=== PATIENT | female | born 1960 | race Caucasian/White ===

== ENCOUNTER 2023-06-17 12:01 | Outpatient (CLI) | payer OTHER, SELFPAY ==
--- OUTSIDE RECORDS SUMMARY | 2023-06-18 07:13 | XMS_ITS | Clinical Summary ---
Author Name Unknown Organization [facility] Address [place], [place] [address] Care Team Providers Care Food Scientist Name Role Phone Susi Guillermo Nikki Primary Care Provider León Mooney MD Unavailable Allergies Active Allergy Reactions Criticality Noted Date Comments Acarbose Stomach Upset,GI Upset 03/09/2016 Arvind Inhibitors Cough Low 12/07/2013 Amlodipine Edema 11/21/2016 Bupivacaine Hypotension High 12/11/2013 Other reaction(s): Low BP Exenatide Microspheres GI Upset Medium 10/10/2016 site reaction. Cephalosporins Rash High 12/11/2013 Rosuvastatin Myalgia 07/02/2019 Erythromycin Rash High 12/11/2013 Hydromorphone Itching High 12/12/2020 Cephalexin Rash 05/16/2015 Melatonin Behavioral Disturbances 05/14/2022 aggressive thoughts 7mg dosing Metformin Diarrhea 07/12/2014 SA and LA Morphine Rash,Itching High 12/11/2013 Nitrate Analogues Hives High 12/12/2020 Nitrofurantoin Rash,Hives High 12/11/2013 Penicillins Anaphylaxis High 12/11/2013 Semaglutide GI Upset 05/14/2022 severe gi upset with reflux. does ok with trulicity. Qzbavxy-Cud-Evp Reductase Inhibitors Muscle Weakness 07/12/2014 Sulfa (Sulfonamide Antibiotics) Hives High 12/11/2013 Medications Medication Sig Dispensed Refills Start Date End Date Status cholecalciferol (VITAMIN D-3) 2,000 unit capsule Take 2,000 Units by mouth once daily. 0 Active Biotin 2,500 mcg tablet Pt takes one 5,000 mcg tablet once daily 0 Active coenzyme q10 (CO Q-10) 100 mg capIndications:Cont rolled type 2 diabetes mellitus without complication, with long-term current use of insulin (HC) Take 2 capsules by mouth once daily. 0 05/04/2020 Active docusate (COLACE) 100 mg capsule Take 1 Capsule (100 mg) by mouth 2 times daily if needed for Constipation. 0 04/07/2021 Active estradioL (ESTRACE) 0.01% (0.1 mg/g) vaginal cream Insert 1 g into the vagina. Three time per week 0 03/10/2021 Active lancets-blood glucose strips (Pogo Automatic Test Cartridge) 30 gauge cmpkIndications:Typ e 2 diabetes mellitus without complication, without long-term current use of insulin (HC) As directed. 5 Each 6 09/06/2021 Active Insulin [place], Disposable, (bd insulin pen needle uf mini) 31 gauge x 3/16Indications:Co ntrolled type 2 diabetes mellitus without complication, with long-term current use of insulin (HC) USE DIRECTED (REMOVE THE 2 COVERS ON THE INSULIN PEN NEEDLE BEFORE ADMINISTERING INSULIN DOSE) 100 Each 3 11/05/2022 Active esomeprazole (NEXIUM) 40 mg capsuleIndications: Chronic GERD Take 1 Capsule (40 mg) by mouth once daily before a meal. 90 Capsule 3 12/17/2022 Active pravastatin (PRAVACHOL) 20 mg tabletIndications:M ixed hyperlipidemia,Type 2 diabetes mellitus without complication, with long-term current use of insulin (HC) Take 0.5 Tablets (10 mg) by mouth at bedtime. 90 Tablet 3 12/17/2022 Active venlafaxine (EFFEXOR) 50 mg tabletIndications:D epression, unspecified depression type TAKE ONE-HALF (1/2) TABLET DAILY 45 Tablet 0 04/19/2023 Active empagliflozin (Jardiance) 25 mg tabletIndications:C ontrolled type 2 diabetes mellitus without complication, with long-term current use of insulin (HC) Take 1 Tablet (25 mg) by mouth once daily. 90 Tablet 2 04/24/2023 Active dulaglutide (TRULICITY) 1.5 mg/0.5 mL subcutaneous penIndications:Unco ntrolled type 2 diabetes mellitus with hyperglycemia (HC) Inject 1.5 mg subcutaneous once weekly. 6 mL 1 04/24/2023 Active dilTIAZem CD (CARDIZEM CD) 120 mg extended release 24 hr capsuleIndications: Hypertension Take 1 Capsule (120 mg) by mouth once daily. 90 Capsule 3 04/24/2023 Active levothyroxine (SYNTHROID) 75 mcg tabletIndications:A cquired hypothyroidism Take 1 Tablet (75 mcg) by mouth once daily. 90 Tablet 3 04/24/2023 Active valsartan (DIOVAN) 160 mg tabletIndications:M ixed hyperlipidemia Take 2 Tablets (320 mg) by mouth once daily. 180 Tablet 4 04/24/2023 Active insulin degludec, U-100, (Tresiba FlexTouch U-100) 100 unit/mL (3 mL) penIndications:Cont rolled type 2 diabetes mellitus without complication, with long-term current use of insulin (HC) Use 20 units SubQ in am and 40 units SubQ in evening. 12 mL 2 04/26/2023 Active venlafaxine (EFFEXOR XR) 75 mg cp24 Extended-Release capsuleIndications: Depression, unspecified depression type Take 1 Capsule (75 mg) by mouth once daily with a meal. 90 Capsule 0 05/03/2023 Active nirmatrelvir-ritona vir 300-100mg, EUA, (PAXLOVID, EUA,) tabletIndications:C OVID-19 virus infection Take 2 nirmatrelvir 150 mg pink-oval tablets and 1 ritonavir 100 mg white-oval tablet together twice daily for 5 days. Date of Symptom Onset: 05/13/23; no result in last 6 months 30 Tablet 0 05/15/2023 3 Active Problems Problem Noted Date Diagnosed Date Non-proliferative diabetic retinopathy, both eye s 05/27/2021 Uncontrolled type 2 diabetes mellitus with hyper glycemia 04/07/2021 Last Assessment & Plan: chart update only. Susi Guillermo D.O. 06/15/2022 8:52 AM Female genital prolapse 01/10/2021 Controlled type 2 diabetes m ellitus without complication, with long-term current use of insulin 07/17/2017 Edema of both ankles 11/21/2016 Mixed hyperlipidemia 05/14/2015 Type 2 diabetes mellitus without complication H/O ventral hernia repair 12/11/2013 Fever 12/11/2013 Tachycardia 12/11/2013 Hypertension 12/11/2013 Hypothyroidism 12/11/2013 Depression 12/11/2013 Obese 12/11/2013 Hyponatremia 12/11/2013 Overview: post op/ chronic. Resolved Problems Problem Noted Date Diagnosed Date Resolved Date Urinary retention 12/11/2013 07/12/2014 Overview: post op Pneumonia 12/11/2013 07/12/2014 Encounters Date Type Department Care Team Description 06/15/2023 Refill [facility] [address] [place] [address] Susi Guillermo DO Refill Request (Trulicity) 06/13/2023 Medical Messaging [facility] [place] [address] Susi Guillermo DO Pt/ot 05/29/2023 7:30 AM E LEARNING SPECIALIST Ancillary Procedure [facility] [address] [place] [address] 05/29/2023 Travel 05/26/2023 Telephone [facility] [place] [place] [address] Susi Guillermo DO Testing (emg testing left hand ) 05/15/2023 3:10 PM E LEARNING SPECIALIST Phone Office Visit [place] [address] [place] [address] Sylvester Arrieta MD Concerns (COVID-19 05/13 /sx started Saturday /101-102 fever ); Throat Problem; Dizziness 05/09/2023 Orders Only [facility] Scanner 1 scan: (1-Ord) CARIE 04/26/2023 Refill [facility] [address] [place] [address] Susi Guillermo DO Refill Request (insulin) 04/24/2023 8:20 AM E LEARNING SPECIALIST Orders Only [address] [address] Lab, [place] [facility] 04/24/2023 7:45 AM E LEARNING SPECIALIST Office Visit [facility] [address] [place] [address] Susi Guillermo, Diabetes 04/24/2023 Travel 04/19/2023 Refill [facility] [address] [place] [address] Susi Guillermo DO Refill Request (Venlafaxine) 04/14/2023 Refill [facility] [address] [place] [address] Susi Guillermo DO Refill Request (Jardiance, Levothyroxine) from Last 3 Months Immunizations Name Administration Dates Next Due COVID-19 vaccine (Moderna 100mcg/0.5mL) PF, MDV 07/18/2020,06/20/2020 COVID-19 vaccine (Piethis.comBio NTech 30mcg/0.3mL) 12YO+ BIVALENT PF, MDV 03/05/2022 Influenza, IIV3 (Age 6-35 mos) 03/17/2012,2010 Influenza, IIV3 (Age >=3 years) 02/17/2013 Influenza, IIV4 04/24/2023, 2,04/07/2021,2019,03/01/2019,03/12/2018,02/25/2017,1 ,04/22/2015,03/15/2014 Pneumococcal Conj 20-valent (Prevnar 20) 05/14/2022 Pneumococcal Poly,23-Valent (Pneumovax) 06/09/2012 Td (Age >=7 Years) 11/08/2001 Tdap 01/08/2014 Zoster (Shingrix-RZV, recombinant) 05/04/2020, Family History Medical History Relation Name Comments Hypertension Brother 1 Diabetes Brother 2 Heart Disease Brother 3 Hyperlipidemia Brother 4 Hypertension Father Hypertension Maternal Grandfather Hypertension Maternal Grandmother Hypertension Mother Thyroid Disease Mother polyps Diabetes Paternal Grandfather Heart Disease Paternal Grandfather Hypertension Paternal Grandfather Stroke Paternal Grandfather Cancer-breast Paternal Grandmother Diabetes Paternal Grandmother Hypertension Paternal Grandmother Stroke Paternal Grandmother Thyroid Disease Paternal Grandmother Hypertension Sister 1 Hypertension Sister 2 Diabetes Sister 3 Relation Name Status Comments Brother 1 Brother 2 Brother 3 Brother 4 Father Maternal Grandfather Maternal Grandmother Mother Paternal Grandfather Paternal Grandmother Sister 1 Sister 2 Sister 3 Social History Tobacco Use Types Packs/Day Years Used Date Smoking Tobacco: Never Smokeless Tobacco: Never Tobacco Cessation:Counseling Given: Yes Alcohol Use Standard Drinks/Week Comments Yes 0 (1 standard drink = 0.6 oz pur e alcohol) few drinks per month PHQ-2 Answer Date Recorded PHQ-2 TOTAL SCORE 6 05/03/2023 Social Connections Answer Date Recorded Frequency of Communication with Friends and Fami ly Not on file 06/17/2023 Financial Resource Strain Answer Date R ecorded Difficulty of Paying Living Expenses 3 03/05/2022 Difficulty of Paying Living Expenses Not on file 03/05/2022 Food Insecurity Answer Date Recorded Worried About Running Out of Food in the Last Ye ar 1 03/05/2022 Transportation Needs Answer Date Record ed Lack of Transportation (Medical) 1 03/05/2022 Housing Stability Answer Date Recorded Unable to Pay for Housing in the Last Year 1 03/05/2022 Sex and Gender Information Value Date Recorded Sex Assigned at Not on file Gender Identity Not on file Sexual Orientation Not on file Obstetrics History Last Filed Vital Signs Vital Sign Reading Time Taken Comments Blood Pressure 130/75 04/24/2023 7:44 AM E LEARNING SPECIALIST Pulse 83 04/24/2023 7:44 AM E LEARNING SPECIALIST Temperature 36.7 ??C (98.1 ??F) 06/14/2020 10:[address] Respiratory Rate 18 12/13/2013 8:30 AM CDT Oxygen Saturation 97% 04/24/2023 7:44 AM E LEARNING SPECIALIST Inhaled Oxygen Concentration - - Weight 87.5 kg (193 lb) 04/24/2023 7:44 AM E LEARNING SPECIALIST Height 158.5 cm (5' 2.4) 03/05/2023 2:24 PM CDT Body Mass Index 34.85 03/05/2023 2:24 PM CDT Plan of Treatment Upcoming Encounters Date Type Department Care Team (Late st Contact Info) Description 10/23/2023 7:45 AM CDT Office Visit [facility] [address] [place] [address] Susi Guillermo DO [address] [place] [address] Health Maintenance Due Date Last Done Comments COVID-19 vaccine series (2022- season) 2023 03/05/2022, 07/18/2020, 06/20/2020 Mammogram for age 45-75 12/18/2023 12/18/19 23, 03/31/2021, 06/02/2018, Additional history exists Tetanus booster 01/09/2024 01/08/2014, 11/08/2001 BMI (ht and wt on same day) for age 18+ 03/05/2024 03/05/2023, 05/14/2022, 04/07/2021, Additional history exists Depression screening for age 12+ 05/03/2024 05/03/2023, 05/17/2022, 05/14/2022, Additional history exists Fecal testing sDNA-FIT (Covert guard) for age 45-75 06/04/2025 06/04/2022 Lipids for age 45-75 04/24/2028 04/24/2023, 12/17/2022, 05/14/2022, Additional history exists Tdap Completed 01/08/2014 Zoster (shingles) series for age 50+ Completed 05/04/2020, 07/27/2019 Hepatitis C screening for ag e 18-79 Completed 07/31/2021 HIV for age 15-65 Completed 05/14/2022 Pneumococcal series for age 6-64 Completed 05/14/20, 06/09/2012 Influenza for age 50-64 Completed 04/24/20 23, 03/05/2022, 04/07/2021, Additional history exists Goals Goal Patient Goal Type Associated Problems Recent Progress Patient-Stated? Author BLOOD PRESSURE - MAINTAINS BP less than 140/90 Blood Pressure No Susi Guillermo DO BLOOD PRESSURE-MAINTA INS BP LESS THAN 130/80 Blood Pressure No Susi Guillermo DO DIABETES-HgbA1C GOAL LESS THAN 7 Result Component No Detert, Susi Nikki, DO Procedures Procedure Name Priority Date/Time Associated Diagnosis Comments XR SPINE CERVICAL 4 OR 5 VIEWS Routine 05/29/2023 7:32 AM E LEARNING SPECIALIST Numbness and tingling in left hand SCAN-ELECTROMYOGRAM EMG 05/09/2023 12:00 AM E LEARNING SPECIALIST HEMOGLOBIN A1C Routine 04/24/2023 7:41 AM E LEARNING SPECIALIST Controlled type 2 diabetes mellitus without complication, with long-term current use of insulin (HC) TSH Add On 04/24/2023 7:40 AM E LEARNING SPECIALIST Acquired hypothyroidism LIPID PANEL Routine 04/24/2023 7:40 AM E LEARNING SPECIALIST Mixed hyperlipidemia from Last 3 Months Results * XR SPINE CERVICAL 4 OR 5 VIEWS (05/29/2023 7:32 AM E LEARNING SPECIALIST) Anatomical Region Laterality Modality Spine, CERVICAL SPINE Computed R adiography 05/29/2023 3:50 PM E LEARNING SPECIALIST Impressions 05/29/2023 3:50 PM E LEARNING SPECIALIST Degenerative disc disease C5-6 and C6-7 with mild bilateral bony foraminal stenosis at C5-6. No instability with flexion or extension. Dictated by Gagan Lr MD @ May ??3 2023 ??3:50PM (Electronically Signed) ?? Narrative 05/29/2023 3:50 PM E LEARNING SPECIALIST For Patients: ??As a result of the Cures Act, medical imaging exams and procedure reports are released immediately into your electronic medical record. ??You may view this report before your referring provider. ??If you have questions, please contact your health care provider. INDICATION: Numbness and tingling TECHNIQUE: Cervical spine 6 view, including bilateral obliques and flexion/extension. COMPARISON: None FINDINGS: Bony foraminal stenosis present bilaterally at C5-6. No fracture. Physiologic motion of C3 on C4 and C4 on C5. Uncovertebral joint hypertrophy at C5-6 and C6-7 with anterior spurring. Facet joints maintained. Lung apices clear. Procedure Note Gagan Lr MD - 05/29/2023 For Patients: As a result of the Cures Act, medical imagingexams and procedure reports are released immediately into your electronicmedical record. You may view this report before your referring provider.If you have questions, please contact your health care provider. INDICATION: Numbness and tingling TECHNIQUE: Cervical spine 6 view, including bilateral obliques andflexion/extension. COMPARISON: None FINDINGS: Bony foraminal stenosis present bilaterally at C5-6. No fracture.Physiologic motion of C3 on C4 and C4 on C5. Uncovertebral jointhypertrophy at C5-6 and C6-7 with anterior spurring. Facet jointsmaintained. Lung apices clear. IMPRESSION: Degenerative disc disease C5-6 and C6-7 with mild bilateral bony foraminalstenosis at C5-6. No instability with flexion or extension. Dictated by Gagan Lr MD @ May 29 2023 3:50PM (Electronically Signed) Susi Guillermo DO GENERAL IMAGING * SCAN-ELECTROMYOGRAM EMG (05/09/2023 12:00 AM E LEARNING SPECIALIST) Scanner OTHER * (ABNORMAL) HEMOGLOBIN A1C MONITORING (POCT) (04/24/2023 7:41 AM E LEARNING SPECIALIST) HEMOGLOBIN A1C MONITORING (POCT) 7.1(H) <=6.4 % 04/24/2023 7:54 AM E LEARNING SPECIALIST [facility] Blood BLOOD SPECIMEN / Unknown Venipuncture / Unknown 04/24/2023 7:41 AM E LEARNING SPECIALIST 04/24/2023 7:41 AM E LEARNING SPECIALIST Narrative [facility] - 04/24/2023 7:54 AM E LEARNING SPECIALIST ? (<=6.9%) ? Indicates good control ? (7.0% to 7.9%) ? Indicates fair control ? (>=8.0%) ? Indicates poor control ?? NOTE: ??These thresholds are guidelines and ?individual targets may vary. Falsely low levels may be seen with: Recent Transfusion, Recent Significant Blood Loss, Hemolytic Diseases, or Falsely elevated levels may be seen with: Untreated Anemias, Splenectomy ? Susi Guillermo DO CHEMISTRY [facility] [address] [place] [address], * TSH (04/24/2023 7:40 AM E LEARNING SPECIALIST) Pathologist [facility] TSH 1.62 0.27 - 4.20 uIU/mL 04/24/2023 5:54 PM E LEARNING SPECIALIST [facility] Blood BLOOD SPECIMEN / Unknown Venipuncture / Unknown 04/24/2023 7:40 AM E LEARNING SPECIALIST 04/24/2023 7:49 AM E LEARNING SPECIALIST Narrative [facility] - 04/24/2023 5:54 PM E LEARNING SPECIALIST In Adults, TSH values between 5.00 and 10.00 uIU/ml do not necessarily indicate the presence of Hypothyroidism. Correlation with clinical findings such as presence of goiter and/or Thyroperoxidase (TPO) Antibody may be helpful. For more information please refer to ALEJANDRO 2004; 291: 228-238. Susi Guillermo DO CHEMISTRY [facility] [address] [place] [address], * (ABNORMAL) LIPID PANEL (04/24/2023 7:40 AM E LEARNING SPECIALIST) CHOLESTEROL,TOTAL 236(H) 100 - 199 mg/dL 04/24/2023 5:20 PM E LEARNING SPECIALIST [facility] Comment: Cholesterol, Total Reference Ranges Desirable <200 mg/dL Borderline 200-239 mg/dL High >=240 mg/dL TRIGLYCERIDES 512(H) <150 mg/dL 04/24/2023 5:20 PM E LEARNING SPECIALIST [facility] HDL CHOLESTEROL 38(L) >40 mg/dL 3 5:20 PM E LEARNING SPECIALIST [facility] NON-HDL CHOLESTEROL 198(H) <145 mg/dl 04/24/2023 5:20 PM E LEARNING SPECIALIST [facility] CHOL/HDL RATIO 6.21(H) <4.50 04/24/2023 5:20 PM E LEARNING SPECIALIST [facility] LDL CHOLESTEROL 5:20 PM E LEARNING SPECIALIST [facility] Comment:Invalid LDL when Tri g >400. VLDL CHOLESTEROL COMMENT 04/24/2023 5:20 PM E LEARNING SPECIALIST [facility] Comment:Unable to calculate VLDL. PROVIDER ORDERED STATUS RANDOM 04/24/2023 5:20 PM E LEARNING SPECIALIST [facility] Blood BLOOD SPECIMEN / Unknown Venipuncture / Unknown 04/24/2023 7:40 AM E LEARNING SPECIALIST 04/24/2023 7:49 AM E LEARNING SPECIALIST Belia Felix MD CHEMISTRY [facility] [address] [place] [address], from Last 3 Months Advance Directives Latest Code Status on File Code Status Date Activated Date Inactivated Comments Full Code 12/11/2013 8:50 PM 12/13/2013 4:44 PM Care Teams Food Scientist Relationship Specialty Start Date End Date Susi Guillermo DO [address] [place] [address] PCP - General Family Practice 06/16/14 León Mooney MD [address] [place] [address] Endocrinology 01/01/22
== END 2023-06-17 12:02 | disposition home or self-care (01) ==
LOC: NFLDREF 06-18 07:11
PROVIDERS: PCP Family Medicine; Referring Provider Family Medicine; Visit Provider Nurse Practitioner
DX: R30.0 Dysuria (principal); N30.00 Acute cystitis without hematuria; N30.01 Acute cystitis with hematuria
CPT/HCPCS: 87086; 87186

== ENCOUNTER 2023-07-29 07:30 | Outpatient (RCR) | payer OTHER, SELFPAY | END 2023-11-26 23:59 | disposition home or self-care (01) | PROVIDERS: PCP Family Medicine; Visit Provider Family Medicine | DX: M50.30 Other cervical disc degeneration, unspecified cervical region (principal); R20.0 Anesthesia of skin; Z51.89 Encounter for other specified aftercare | CPT/HCPCS: 97110; 97140; 97162 ==

== ENCOUNTER 2024-01-22 16:17 | Observation (INO) | payer OTHER, SELFPAY ==
[2024-01-22 16:23] VITALS: BP 172/85; PULSE 98; RESP 18; TEMP 36.6; O2SAT 96; BMI 33.8
--- NOTE | 2024-01-22 17:22 | ED_ITS ---
<Statement entered by Barbara Multani MD - 01/24/24 09:26> inadvertently opened. HPI - Fall General Time Seen by Provider: 17:22 Date Seen: 01/22/24 Chief Complaint: Fall/Minor Trauma Stated Complaint: loss of consciousness Time Seen by Provider: 01/22/24 17:13 Source: patient and RN notes reviewed Mode of arrival: ambulatory Limitations: no limitations History of Present Illness HPI Narrative: This 63-year-old female is coming in accompanied by her with concern of an episode that happened earlier where her legs gave out, she fell, possible loss of consciousness, incoherent speech for about 10 minutes after. She states it was really bizarre, almost like an out of body experience. Her felt her pulse felt fast but regular, her breathing seemed altered for a while and her speech was garbled, maybe up to 10 minutes. She did fall, she knew her legs were giving out. They just felt weak and gave out. She has been experiencing leg weakness for about a week now, feels it with getting up out of a chair, going up steps. She has never had anything to this extent before. She has been on rosuvastatin for about a week as the pharmacy was out of the pravastatin. When she is taken rosuvastatin the past she noted leg weakness, could not tolerate it. She never had anything like this before though. She actually did fall to the ground, it is questionable if she lost consciousness or not. Her notes that her speech was clearly altered and not clear. There is no noted pain anywhere, she has not been having any muscular pain. There is no back pain, no pain going down her legs. Her right hand along the palm at the base of the 3rd 4th and 5th fingers has been numb this past week. She has had that with prior cervical issues for which she did physical therapy. She is not experiencing any neck pain at this time, numbness sensation is not worse at this time. She notes that she had a recent follow up in clinic with Dr. Guillermo and her diabetes was out of control. She has been walking again, doing about 2 miles a day. There is no chest pain, no palpitations, no abdominal symptoms with this. Her worries about a small stroke or TIA, do review with him that that is certainly in the differential. We discussed such entities as cervical myelopathy, other etiologies in the syncope category. She notes that she did have negative cardiac stress testing before but that was in [place], unknown how long ago. She has no known cardiac or heart history. When this happened, patient was able to call out her 's name once. She feels like she remembers the whole episode but could not say anything, could not control her body. She states it feels like it was an out of body episode. Related Data Home Medications ?Medication ?Instructions ?Recorded ?Confirmed diltiazem HCl 120 mg 120 mg PO DAILY 06/17/23 01/22/24 capsule,extended release 24 hr empagliflozin 25 mg tablet 25 mg PO DAILY 06/17/23 01/22/24 (Jardiance) esomeprazole magnesium 40 mg 40 mg PO DAILY 06/17/23 01/22/24 capsule,delayed release insulin degludec 100 unit/mL (3 57 unit subcut Q24H 06/17/23 01/22/24 mL) subcutaneous pen (Tresiba FlexTouch U-100 insulin) levothyroxine 75 mcg tablet 75 mcg PO DAILY 06/17/23 01/22/24 pen needle, diabetic 31 gauge x #1,200 ea 06/17/23 06/17/23 3/16 (BD Ultra-Fine Mini Pen Needle) valsartan 160 mg tablet 320 mg PO DAILY 06/17/23 01/23/24 venlafaxine 75 mg capsule,extended 75 mg PO DAILY 06/17/23 01/22/24 release 24 hr tirzepatide 5 mg/0.5 mL 5 mg subcut .weekly 01/22/24 01/22/24 subcutaneous pen injector (Sharona) biotin 2,500 mcg tablet 5,000 mcg PO DAILY 01/23/24 01/23/24 cholecalciferol (vitamin D3) 50 2,000 unit PO DAILY 01/23/24 01/23/24 mcg (2,000 unit) capsule coenzyme Q10 100 mg capsule 200 mg PO DAILY 01/23/24 01/23/24 estradiol 0.01% (0.1 mg/gram) 1 g vaginal 3XW 01/23/24 01/23/24 vaginal cream Previous Rx's ?Medication ?Instructions ?Recorded aspirin 81 mg capsule 81 mg PO DAILY #30 caps 01/23/24 pravastatin 40 mg tablet 40 mg PO QHS #30 tabs 01/23/24 Allergies Allergy/AdvReac Type Severity Reaction Status Date / Time Penicillins Allergy Severe Anaphylaxis Verified 01/22/24 18:43 Sulfa (Sulfonamide Allergy Intermediate Hives/Rash Verified 01/22/24 18:43 Antibiotics) EDDI Inhibitors Allergy Unknown Verified 01/22/24 18:43 Cephalosporins Allergy Unknown Verified 01/22/24 18:43 erythromycin base Allergy Unknown Verified 01/22/24 18:43 [From Erythrocin] metformin Allergy Unknown Verified 01/22/24 18:43 morphine Allergy Unknown Verified 01/22/24 18:43 nitrofurantoin Allergy Unknown Verified 01/22/24 18:43 [From Macrobid] Uubjuan-ERU-EzC Reductase Allergy Unknown Verified 01/22/24 18:43 Inhibitor Review of Systems Status of ROS: Reports: 6 or more systems reviewed and unremarkable except as noted in History and below [facility] Medical History (Updated 01/23/24 @ 15:27 by Noelle Elmore MD) Multiple drug allergies ?Z88.9 - Allergy status to unspecified drugs, medicaments and biological substances (ICD-10) Obesity ?E66.9 - Obesity, unspecified (ICD-10) GERD (gastroesophageal reflux disease) ?K21.9 - Gastro-esophageal reflux disease without esophagitis (ICD-10) Hypothyroidism ?E03.9 - Hypothyroidism, unspecified (ICD-10) Hyperlipidemia, mixed ?E78.2 - Mixed hyperlipidemia (ICD-10) Type 2 diabetes mellitus ?E11.9 - Type 2 diabetes mellitus without complications (ICD-10) HTN (hypertension) ?I10 - Essential (primary) hypertension (ICD-10) Surgical History (Updated 01/22/24 @ 21:33 by Barbara Multani MD) H/O breast biopsy ?Z98.890 - Other specified postprocedural states (ICD-10) H/O hernia repair ?Z98.890 - Other specified postprocedural states (ICD-10) ?Z87.19 - Personal history of other diseases of the digestive system (ICD-10) History of hysterectomy ?Z90.710 - Acquired absence of both cervix and uterus (ICD-10) History of laparoscopic cholecystectomy ?Z90.49 - Acquired absence of other specified parts of digestive tract (ICD- 10) Status post appendectomy ?Z90.49 - Acquired absence of other specified parts of digestive tract (ICD- 10) Social History What is your current living situation?: I presently have a place to live Problems where you live: no known problems Problems where you live details: n/a In the past 12 months, utilities in danger of being shut off: no In past 12 months, lack of transportation kept you from medical appts, meetings, work, or getting things needed for daily living: no In the past 12 mos, have been you worried that your food would run out before you had money to buy more?: never true In the past 12 mos, the food you bought just didn't last and you didn't have money to buy more?: never true Highest level of school completed/degree received: Master's degree Smoking Status: Never smoker Do you use any of these nicotine containing products: None Second hand tobacco smoke exposure: No How often do you have a drink containing alcohol: monthly or less How often do you have six or more drinks on one occasion: Less than monthly AUDIT-C Alcohol total score: 2 Non-prescribed substance use: denies use How often does anyone, including family, friends and others, physically hurt you : never How often does anyone, including family, friends and others, insult or talk down to you: never How often does anyone, including family, friends and others, threaten you with harm: never How often does anyone, including family, friends and others, scream or curse at you: never service: No Exam Const: Vital Signs, click to edit/add: Vital Signs - 24 hr 01/22/24 16:23 01/22/24 17:33 Temperature 98 F Pulse Rate [Left P ulse Oximeter] 98 Respiratory Rate 18 Blood Pressure [Le ft Upper Arm] 172/85 H Pulse Oximetry 96 97 Oxygen Delivery Me thod Room Air This 63-year-old female is alert, interactive, no apparent distress. Pupils equal round react light, sclera clear, extraocular muscles intact. TMs normal, no hemotympanum, no drainage in canals, no infection noted. Symmetrical facial function. Speech is normal, articulate. She is speaking in complete sentences. Neck full range of motion, no adenopathy, no jugular venous distension, no thyromegaly masses or nodules. Lungs are clear, good air entry, no wheezing or crackles. CV regular rate and rhythm no murmur, normal S1-S2, no S3-S4. Abdomen is soft, nontender, nondistended, no organomegaly. Strength in her upper extremities and lower extremities is 5/5 and symmetric throughout hands wrists arms, toes, feet ankles and legs. She has normal light touch sensation. No lower extremity edema. No tremors or dysmetria noted. See no traumatic areas. She has negative straight leg raising bilaterally. Documenting provider has reviewed patient's vital signs: yes Course Course ED Course: This 63-year-old female has had an episode, difficult to say whether her legs gave out. She now has no focal abnormality, strength is completely normal. If she had a cervical myelopathy would think she would have ongoing weakness. She did fall though and possible loss of consciousness. Will do head neck CT. They are concerned about the speech abnormalities afterwards which have currently resolved. Will proceed with angio head neck as well. I can talk to Neurology at some point if there is a need. It is possible that this is syncopal and need to consider syncopal etiologies. She understands will be obtaining a D-dimer and that if this is elevated may need to CT imaging PE protocol. Will get full complement of labs, monitor on cardiac monitoring pulse oximetry. Will get baseline EKG on her as well. Reevaluation(s) Time of Reevaluation #1: 20:27 Reevaluation #1: Reviewed with patient the CT findings. The CTA and head CT imaging specifically discussed. Reviewed my conversation with the stroke neurologist and plan for MRI in the morning. Neurologist who recommends that we follow seizure protocol MRI which I believe is within without contrast. Did discuss that she would likely be talking to Neurology herself, would possibly need outpatient Neurology follow-up and consideration for EEG if seizure is still a possibility. Did review hemoglobin of 10.7. Patient is unaware of prior levels. Did state she did a Cologuard last year. Consultations Consultation #1: Spoke with Dr. Rivera stroke neurologist from [place]. Reviewed this atypical spell of 10 minutes. She is wondering about possibility of an atypical seizure. She would recommend that we have a follow-up MRI her brain, we cannot do this this evening. Thus, patient will be recommended to be observed overnight and have this done in the morning. Time: 19:50 Consultation #2: Reviewed with hospitalist Dr. Multani. She agrees to observe this patient overnight for MRI in the morning. Time: 20:37 Vital Signs Vital signs: Initial Vital Signs Temperature 98 F 01/22/24 16:23 Temperature Source Temporal Artery Scan 01/22/24 16:23 Pulse Rate 98 01/22/24 16:23 Pulse Rhythm Regular 01/22/24 16:23 Pulse Strength 3+ Normal 01/22/24 16:23 Respiratory Rate 18 01/22/24 16:23 Blood Pressure 172/85 H 01/22/24 16:23 Blood Pressure Mean 114 H 01/22/24 16:23 Blood Pressure Position Sitting 01/22/24 16:23 Pulse Oximetry 96 01/22/24 16:23 Oxygen Delivery Method Room Air 01/22/24 16:23 Vital Signs Temperature 98 F 01/22/24 16:23 Pulse Rate 98 01/22/24 16:23 Respiratory Rate 18 01/22/24 16:23 Blood Pressure 172/85 H 01/22/24 16:23 Pulse Oximetry 96 01/22/24 16:23 Oxygen Delivery Method Room Air 01/22/24 16:23 Temperature 98.4 F 01/23/24 11:00 Pulse Rate 82 01/23/24 15:00 Respiratory Rate 20 01/23/24 15:00 Blood Pressure 153/88 H 01/23/24 11:00 Pulse Oximetry 95 01/23/24 11:00 Oxygen Delivery Method Room Air 01/23/24 11:00 Medications Administered Medications: Discontinued Medications Generic Name Dose Route Start Last Admin Trade Name Freq PRN Reason Stop Dose Admin Acetaminophen 650 - 975 mg 01/22/24 22:07 01/23/24 00:46 Acetaminophen 325 Mg Tablet PO 975 mg Q6H PRN Administration Coenzyme Q10 200 mg 01/23/24 09:00 01/23/24 09:05 Coenzyme Q10 100 Mg Capsule PO 200 mg DAILY VASILE Administration Diltiazem HCl 120 mg 01/22/24 22:45 01/22/24 22:52 Diltiazem 120 Mg Cap.Er.24h PO 120 mg HS VASILE Administration Empagliflozin 25 mg 01/23/24 09:00 01/23/24 09:06 Empagliflozin 10 Mg Tablet PO 25 mg DAILY VASILE Administration Insulin Aspart 0 unit 01/23/24 07:30 01/23/24 16:19 Insulin Aspart 100 Unit/Ml SUBCUT Not Given ACHS [facility] Protocol Levothyroxine Sodium 75 mcg 01/23/24 06:30 01/23/24 06:26 Levothyroxine 75 Mcg Tablet PO 75 mcg DAILY@0630 VASILE Administration Non-Formulary Medication 57 unit 01/22/24 22:30 01/22/24 22:38 Insulin Degludec [Tresiba Flextouch U-100] subcut Not Given Q24H [facility] Omeprazole 40 mg 01/23/24 09:00 01/23/24 09:05 [address]epraz[address] PO 40 mg DAILY VASILE Administration Sodium Chloride 5 ml 01/23/24 09:00 01/23/24 09:07 Sodium Chloride 0.9 % (Flush) 10 Ml Syringe IVF 5 ml BID VASILE Administration Valsartan 320 mg 01/22/24 22:30 01/23/24 09:22 Valsartan 160 Mg Tablet PO Not Given DAILY VASILE Valsartan 320 mg 01/23/24 09:30 01/23/24 09:19 Valsartan 80 Mg Tablet PO 320 mg DAILY VASILE Administration Venlafaxine HCl 75 mg 01/23/24 09:00 01/23/24 09:12 Venlafaxine Er 75 Mg Capsule PO 75 mg DAILY VASILE Administration MDM - Fall Lab Data Attestation: I reviewed the patient's lab results. Labs: Lab Results 01/22/24 Range/Units 17:53 WBC 10.28 (4.50-11.00) K/uL RBC 4.80 (4.00-5.20) m/uL Hgb 10.7 L (12.0-16.0) gm/dL Hct 35.8 (33.0-51.0) % MCV 75 L (80-100) fL MCH 22 L (26-34) pg MCHC 30 L (32-36) gm/dL RDW Coeff of Fanny 15.9 H (11.5-15.5) % Plt Count 325 (140-440) K/uL Neut % (Auto) 58.7 (42.0-72.0) % Lymph % (Auto) 31.5 (20-44) % [place] % (Auto) 6.8 (0.0-11.0) % Eos % (Auto) 2.6 (0.0-7.0) % Baso % (Auto) 0.3 (0.0-3.0) % Neut # (Auto) 6.03 (1.7-7.0) K/uL Lymph # (Auto) 3.24 H (0.90-2.90) K/uL [place] # (Auto) 0.70 (0.00-0.90) K/UL Eos # (Auto) 0.27 (0.00-0.50) K/uL Baso # (Auto) 0.03 (0.00-0.30) K/uL Abs Immat Gran (auto) 0.01 (0.00-0.30) K/uL Imm/Tot Granulo (auto) 0.1 % D-Dimer Quant (PE/DVT) < 0.27 (0.00-0.50) ug/ml Sodium 138 (135-149) mmol/L Potassium 4.2 (3.6-5.1) mmol/L Chloride 105 (96-114) mmol/L Carbon Dioxide 26 (20-32) mmol/L Anion Gap 7 (7-15) mEq/L BUN 15 (7-30) mg/dL Creatinine 0.8 (0.5-1.5) mg/dL Estimated Creat Clear 45.54 Estimated GFR 83 ml/min Glucose 116 H (60-115) mg/dL Lactate 1.1 (0.5-1.9) mmol/L Calcium 9.5 (8.4-10.6) mg/dL Total Bilirubin 0.2 (0.1-1.5) mg/dL AST 27 (12-35) U/L ALT 18 (4-35) U/L Alkaline Phosphatase 81 (40-150) U/L Total Creatine Kinase 106 (41-117) U/L Troponin I < 0.01 L (0.01-0.04) ng/mL C-Reactive Protein 1.1 H (0.5-1.0) mg/dL NT-Pro-B Natriuret Pep < 20 pg/mL Total Protein 7.6 (6.0-8.3) g/dL Albumin 4.6 (3.3-5.0) g/dL Imaging Data CT scan - head: Attestation: I have reviewed the pertinent imaging results. Radiologist's impression: Patient: [facility] Facility:?[facility] Patient ID:?[id number] Site Patient ID:?[id number]. Site :?1960 Study:?CT-Head W/O-01/22/2024 7:06:01 PM Ordering Physician:Melony Daley Final Report: Indication Fall. TECHNIQUE: Noncontrast CT images of the brain. COMPARISON: None. FINDINGS: The ventricles and sulci are within normal as patient age. No mass effect or midline shift. The trinh-white differentiation is maintained. No acute intracranial hemorrhage or pathologic extra-axial fluid collection. Suggested mild to moderate chronic microvascular ischemic changes. Intracranial atherosclerotic calcifications. The globes are symmetric. The calvarium is intact. The paranasal sinuses and mastoid air cells are clear. IMPRESSION: No acute intracranial hemorrhage or mass effect. Please note that all CT scans at this facility use dose modulation, iterative reconstruction, and/or weight-based dosing when appropriate to reduce radiation dose to as low as reasonably achievable. Dictated by Jaun Price MD @ 01/22/2024 7:24:20 PM (Electronic Signature) Chest x-ray: Attestation: I have reviewed the pertinent imaging results. Radiologist's impression: Patient: [facility] Facility:?[facility] Patient ID:?[id number] Site Patient ID:?[id number]. Site :?1960 Study:?XRay-Chest 1 VIEW PORTABLE-01/22/2024 6:29:49 PM Ordering Physician:?Keri Daley Final Report: INDICATION: Shortness of breath TECHNIQUE: Chest radiograph 1 view COMPARISON: None FINDINGS: The sensitivity and specificity of the exam are moderately limited by the patient`s body habitus. Mediastinum: The mediastinum is normal in appearance. The heart silhouette is normal in size and morphology. Lung: Both lungs are unremarkable in appearance with small lung volumes. No sign of pleural effusion seen. No pneumothorax is identified. Bone and Soft tissue: Unremarkable for age. IMPRESSION: 1. No acute cardiopulmonary disease is seen. Dictated by: Daniel Wall MD @ 01/22/2024 19:37:28 (Electronic Signature) CT cervical spine: Attestation: I have reviewed the pertinent imaging results. Radiologist's impression: Patient: [facility] Facility:?[facility] Patient ID:?[id number] Site Patient ID:?[id number]. Site :?1960 Study:?CT-Spine Cervical W/O-01/22/2024 7:07:09 PM Ordering Physician:?Keri Daley Final Report: Indication Fall. TECHNIQUE: Noncontrast CT images of the cervical spine. COMPARISON: None. FINDINGS: Mild straightening of the cervical lordosis. Vertebral body heights are preserved. No acute fracture or traumatic subluxation. Grade 1 anterolisthesis of C4 on C5. Moderately advanced disc height loss at C5-6. Posterior disc osteophyte complexes contribute up to moderate narrowing at C5-6. Multilevel uncinate spurring and facet arthropathy contributing to advanced neural foraminal stenosis on the right at C5-6. The lung apices are clear. IMPRESSION: 1. No acute fracture or traumatic subluxation. 2. Multilevel cervical spondylosis. Please note that all CT scans at this facility use dose modulation, iterative reconstruction, and/or weight-based dosing when appropriate to reduce radiation dose to as low as reasonably achievable. Dictated by Jaun Price MD @ 01/22/2024 8:06:01 PM (Electronic Signature) CT- Other: Attestation: I have reviewed the pertinent imaging results. Radiologist's impression: Patient: [facility] Facility:?[facility] Patient ID:?[id number] Site Patient ID:?[id number]. 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 Otherwise, no proximal large vessel occlusion or cervical arterial stenosis. Read by:?Jaun Price MD @01/22/2024 7:20:48 PM ECG Data Attestation: I personally reviewed and interpreted this ECG as follows: (Normal sinus rhythm, 78 beats per minute. Flipped T-waves lead V1 and aVL without ST segment change. No infarct noted.) ECG interpretation date: 01/22/24 ECG interpretation time: 18:18 Prior ECG tracings: not available for review Discharge Plan Discharge Clinical Impression: Spell of altered consciousness, Spell of generalized weakness Patient Disposition: Admitted As Observation Condition: Improved Activity Level: No Restrictions Discharge Diet: Heart Healthy (2 gm sodium, low fat)
[2024-01-22 17:33] VITALS: O2SAT 97
--- NOTE | 2024-01-22 17:33 | CRLHL7_ITS ---
For Patients: As a result of the Century Cures Act, medical imaging exams and procedure reports are released immediately into your electronic medical record. You may view this report before your referring provider. If you have questions, please contact your health care provider. Indication Fall. TECHNIQUE: Noncontrast CT images of the brain. COMPARISON: None. FINDINGS: The ventricles and sulci are within normal as patient age. No mass effect or midline shift. The trinh-white differentiation is maintained. No acute intracranial hemorrhage or pathologic extra-axial fluid collection. Suggested mild to moderate chronic microvascular ischemic changes. Intracranial atherosclerotic calcifications. The globes are symmetric. The calvarium is intact. The paranasal sinuses and mastoid air cells are clear. IMPRESSION: No acute intracranial hemorrhage or mass effect. Please note that all CT scans at this facility use dose modulation, iterative reconstruction, and/or weight-based dosing when appropriate to reduce radiation dose to as low as reasonably achievable. Dictated by Jaun Price MD @ 01/22/2024 7:24:20 PM (Electronically Signed)
--- NOTE | 2024-01-22 17:33 | CRLHL7_ITS ---
For Patients: As a result of the Century Cures Act, medical imaging exams and procedure reports are released immediately into your electronic medical record. You may view this report before your referring provider. If you have questions, please contact your health care provider. DATE: 01/22/2024 CLINICAL HISTORY: Patient with fall and syncope. TECHNIQUE: Standard helical CT image acquisition through the intracranial circulation following intravenous administration of contrast material with bolus tracking. 2D and 3D MIP images for post-processing were performed and interpreted on an independent workstation and 3D images were permanently archived. COMPARISON: CT same day. FINDINGS: There is no cerebral aneurysm or large vessel occlusion. 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 There is mild to moderate intracranial atherosclerosis in the carotid siphons bilaterally. The right middle cerebral artery and its branches are normal. The right anterior cerebral artery and its branches are normal. The left middle cerebral artery and its branches are normal. The left anterior cerebral artery and its branches are normal. The anterior communicating artery is well visualized and appears normal. The left vertebral artery and PICA are normal. The left vertebral artery is dominant. The basilar artery is patent and appears normal. The right posterior cerebral artery is normal. The left posterior cerebral artery is normal. The visualized venous structures are patent. IMPRESSION: 1. No cerebral aneurysm or large vessel occlusion. 2. 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 3. Mild to moderate intracranial atherosclerosis in the carotid siphons bilaterally. Please note that all CT scans at this facility use dose modulation, iterative reconstruction, and/or weight-based dosing when appropriate to reduce radiation dose to as low as reasonably achievable. Dictated by Mckayla Chaves MD @ 01/23/2024 11:29:50 AM (Electronically Signed)
--- NOTE | 2024-01-22 17:33 | CRLHL7_ITS ---
For Patients: As a result of the Century Cures Act, medical imaging exams and procedure reports are released immediately into your electronic medical record. You may view this report before your referring provider. If you have questions, please contact your health care provider. Indication Fall. TECHNIQUE: Noncontrast CT images of the cervical spine. COMPARISON: None. FINDINGS: Mild straightening of the cervical lordosis. Vertebral body heights are preserved. No acute fracture or traumatic subluxation. Grade 1 anterolisthesis of C4 on C5. Moderately advanced disc height loss at C5-6. Posterior disc osteophyte complexes contribute up to moderate narrowing at C5-6. Multilevel uncinate spurring and facet arthropathy contributing to advanced neural foraminal stenosis on the right at C5-6. The lung apices are clear. IMPRESSION: 1. No acute fracture or traumatic subluxation. 2. Multilevel cervical spondylosis. Please note that all CT scans at this facility use dose modulation, iterative reconstruction, and/or weight-based dosing when appropriate to reduce radiation dose to as low as reasonably achievable. Dictated by Jaun Price MD @ 01/22/2024 8:06:01 PM (Electronically Signed)
--- NOTE | 2024-01-22 17:33 | CRLHL7_ITS ---
For Patients: As a result of the Century Cures Act, medical imaging exams and procedure reports are released immediately into your electronic medical record. You may view this report before your referring provider. If you have questions, please contact your health care provider. DATE: 01/22/2024 CLINICAL HISTORY: Patient with syncope and fall, neck pain. TECHNIQUE: Standard helical CT image acquisition of the neck up to the skull base after bolus intravenous contrast enhancement. 2D and 3D MIP images for post-processing were performed and interpreted on an independent workstation and 3D images were permanently archived. COMPARISON: CT same day. FINDINGS: The origins of the great vessels from the aortic arch are patent. The origin of the right vertebral artery is patent. The origin of the left vertebral artery is patent. The common carotid arteries are patent. There is plaque without stenosis at the origin of the right internal carotid artery. There is plaque without stenosis at the origin of the left internal carotid artery. The rest of the cervical segments of the internal carotid arteries are patent up to the skull base. The left vertebral artery is dominant. The cervical segments of the vertebral arteries are patent up to the skull base. The visualized lung apices are unremarkable. The thyroid gland is unremarkable. The soft tissues of the neck are unremarkable. There are degenerative changes in the cervical spine. IMPRESSION: Patent cervical vasculature. Please note that all CT scans at this facility use dose modulation, iterative reconstruction, and/or weight-based dosing when appropriate to reduce radiation dose to as low as reasonably achievable. Dictated by Mckayla Chaves MD @ 01/23/2024 11:22:05 AM (Electronically Signed)
--- NOTE | 2024-01-22 17:34 | CRLHL7_ITS ---
For Patients: As a result of the Century Cures Act, medical imaging exams and procedure reports are released immediately into your electronic medical record. You may view this report before your referring provider. If you have questions, please contact your health care provider. INDICATION: Shortness of breath TECHNIQUE: Chest radiograph 1 view COMPARISON: None FINDINGS: The sensitivity and specificity of the exam are moderately limited by the patient`s body habitus. Mediastinum: The mediastinum is normal in appearance. The heart silhouette is normal in size and morphology. Lung: Both lungs are unremarkable in appearance with small lung volumes. No sign of pleural effusion seen. No pneumothorax is identified. Bone and Soft tissue: Unremarkable for age. IMPRESSION: 1. No acute cardiopulmonary disease is seen. Dictated by: Daniel Wall MD @ 01/22/2024 19:37:28 (Electronically Signed)
[2024-01-22 18:00] LABS: Lactate* 1.1 mmol/L (0.5-1.9)
[2024-01-22 18:01] LABS: Basophils Absolute Auto 0.03 K/uL (0.00-0.30); Basophils Percent Auto 0.3 % (0.0-3.0); Eosinophils Absolute Auto 0.27 K/uL (0.00-0.50); Eosinophils Percent Auto 2.6 % (0.0-7.0); Hematocrit 35.8 % (33.0-51.0); Hemoglobin* 10.7 gm/dL (12.0-16.0); Immature Granulocytes Abs Auto 0.01 K/uL (0.00-0.30); Immature Granulocytes Pct Auto 0.1 %; Lymphocytes Absolute Auto 3.24 K/uL (0.90-2.90); Lymphocytes Percent Auto 31.5 % (20-44); Mean Corpuscular HGB Conc 30 gm/dL (32-36); Mean Corpuscular Hemoglobin 22 pg (26-34); Mean Corpuscular Volume 75 fL (80-100); Monocytes Percent Auto 6.8 % (0.0-11.0); Neutrophils Absolute Auto 6.03 K/uL (1.7-7.0); Neutrophils Percent Auto 58.7 % (42.0-72.0); Platelet Count* 325 K/uL (140-440); RDW Coefficient of Variation % 15.9 % (11.5-15.5); White Blood Count* 10.28 K/uL (4.50-11.00)
--- OUTSIDE RECORDS SUMMARY | 2024-01-22 18:11 | XMS_ITS | Clinical Summary ---
Author Organization [facility] Address [place], [place] [address] Care Team Providers Care Amusement Or Recreation Card Checker Name Role Phone Susi Guillermo Primary Care Provider [phone] León Mooney MD Unavailable Allergies Active Allergy Reactions Criticality Noted Date Comments Acarbose Stomach Upset,GI Upset 03/09/2016 Arvind Inhibitors Cough Low 12/07/2013 Amlodipine Edema 11/21/2016 Bupivacaine Hypotension High 12/11/2013 Other reaction(s): Low BP Exenatide Microspheres GI Upset Medium 10/10/2016 site reaction. Cephalosporins Rash High 12/11/2013 Rosuvastatin Myalgia 07/02/2019 Dulaglutide GI Upset High 12/23/2023 severe gi reflux and regurgitation with severe constipation Erythromycin Rash High 12/11/2013 Hydromorphone Itching High 12/12/2020 Cephalexin Rash 05/16/2015 Melatonin Behavioral Disturbances 05/14/2022 aggressive thoughts 7mg dosing Metformin Diarrhea 07/12/2014 SA and LA Morphine Rash,Itching High 12/11/2013 Nitrate Analogues Hives High 12/12/2020 Nitrofurantoin Rash,Hives High 12/11/2013 Penicillins Anaphylaxis High 12/11/2013 Semaglutide GI Upset 05/14/2022 severe gi upset with reflux. does ok with trulicity. Kedzinb-Sbo-Lkr Reductase Inhibitors Muscle Weakness 07/12/2014 Sulfa (Sulfonamide Antibiotics) Hives High 12/11/2013 Medications Medication Sig Dispensed Refills Start Date End Date Status cholecalciferol (VITAMIN D-3) 2,000 unit capsule Take 2,000 Units by mouth once daily. Active Biotin 2,500 mcg tablet Pt takes one 5,000 mcg tablet once daily 0 Active coenzyme q10 (CO Q-10) 100 mg capIndications:Contr olled type 2 diabetes mellitus without complication, with long-term current use of insulin (HC) Take 2 capsules by mouth once daily. 0 05/04/2020 Active docusate (COLACE) 100 mg capsule Take 1 Capsule (100 mg) by mouth 2 times daily if needed for Constipation. 0 04/07/2021 Active Insulin Belfair, Disposable, (bd insulin pen needle uf mini) 31 gauge x 08/09Indications:Con trolled type 2 diabetes mellitus without complication, with long-term current use of insulin (HC) USE DIRECTED (REMOVE THE 2 COVERS ON THE INSULIN PEN NEEDLE BEFORE ADMINISTERING INSULIN DOSE) 100 Each 3 11/05/2022 Active empagliflozin (Jardiance) 25 mg tabletIndications:Co ntrolled type 2 diabetes mellitus without complication, with long-term current use of insulin (HC) Take 1 Tablet (25 mg) by mouth once daily. 90 Tablet 2 04/24/2023 Active dilTIAZem CD (CARDIZEM CD) 120 mg extended release 24 hr capsuleIndications:H ypertension Take 1 Capsule (120 mg) by mouth once daily. 90 Capsule 3 04/24/2023 Active levothyroxine (SYNTHROID) 75 mcg tabletIndications:Ac quired hypothyroidism Take 1 Tablet (75 mcg) by mouth once daily. 90 Tablet 3 04/24/2023 Active valsartan (DIOVAN) 160 mg tabletIndications:Mi xed hyperlipidemia Take 2 Tablets (320 mg) by mouth once daily. 180 Tablet 4 04/24/2023 Active insulin degludec, U-100, (Tresiba FlexTouch U-100) 100 unit/mL (3 mL) penIndications:Contr olled type 2 diabetes mellitus without complication, with long-term current use of insulin (HC) USE 20 UNITS UNDER THE SKIN IN THE MORNING AND 40 UNITS IN THE EVENING 60 mL 09/04/2023 Active venlafaxine (EFFEXOR XR) 75 mg cp24 Extended-Release capsuleIndications:D epression, unspecified depression type TAKE 1 CAPSULE DAILY WITH A MEAL 90 Capsule 3 10/16/2023 Active esomeprazole (NEXIUM) 40 mg capsuleIndications:C hronic GERD TAKE 1 CAPSULE DAILY BEFORE A MEAL 90 Capsule 11/06/2023 Active insulin degludec, U-200, (Tresiba FlexTouch U-200) 200 unit/mL (3 mL) penIndications:Contr olled type 2 diabetes mellitus without complication, with long-term current use of insulin (HC) Inject 60 units subcutaneous once daily in the evening. 27 mL 11/13/2023 Active estradioL (ESTRACE) 0.01% (0.1 mg/g) vaginal creamIndications:Atr ophic vaginitis Insert 1 g into the vagina every Saturday, Saturday and Saturday. 42.5 g 11/13/2023 Active docosahexaenoic acid/epa (FISH OIL ORAL) Take by mouth. Active BILBERRY ORAL Take by mouth. Active rosuvastatin (CRESTOR) 5 mg tabletIndications:Co ntrolled type 2 diabetes mellitus without complication, with long-term current use of insulin (HC),Mixed hyperlipidemia Take 1 Tablet (5 mg) by mouth at bedtime. 90 Tablet 3 12/23/2023 Active tirzepatide (Mounjaro) 2.5 mg/0.5 mL penIndications:Contr olled type 2 diabetes mellitus without complication, with long-term current use of insulin (HC) Inject 2.5 mg subcutaneous once weekly. 2 mL 12/23/2023 Active tirzepatide (Mounjaro) 5 mg/0.5 mL penIndications:Contr olled type 2 diabetes mellitus without complication, with long-term current use of insulin (HC) Inject 5 mg subcutaneous once weekly. 2 mL 12/23/2023 Active wecdqgxb-snhxnm-andd rbic acid (Collagen 1500 Plus C) 500 mg-800 mcg- 50 mg capIndications:Prima ry osteoarthritis of both knees Take 4 Capsules by mouth once daily. 12/23/2023 Active Active Problems Problem Noted Date Diagnosed Date Uncontrolled type 2 diabetes mellitus with hyper [...] Problem Noted Date Diagnosed Date Resolved Date Non-proliferative diabetic r etinopathy, both eyes 05/27/2021 12/23/2023 Urinary retention 12/11/2013 07/12/2014 Overview: post op Pneumonia 12/11/2013 07/12/2014 Encounters Date Type Department Care Team Description 12/23/2023 8:10 AM CDT Office Visit [address] [address] Susi Guillermo DO Diabetes; Medication Management (no longer taking trulicity- been almost 2 months) 12/23/2023 Travel 12/10/2023 Orders Only [facility] Scanner 1 scan: ([facility]-Ord[facility] 12/10/2023 11/13/2023 E-Consult [facility] [address] [place] [address] Bisi Yadav, PharmD 11/12/[address] [address] Susi Guillermo DO Refill Request (Tresiba Flextouch U-200) 11/05/[address] [address] Susi Guillermo DO Refill Request (Esomeprazole) from Last 3 Months Immunizations Name Administration Dates Next Due COVID-19 vaccine (Moderna 100mcg/0.5mL) PF, MDV 07/18/2020,06/20/2020 COVID-19 vaccine (ComplyMD-Bio NTech 30mcg/0.3mL) 12YO+ BIVALENT PF, MDV 03/05/2022 [...] of Communication with Friends and Fami ly 0 12/23/2023 Financial Resource Strain Answer Date R ecorded Difficulty of Paying Living Expenses 3 12/23/2023 Difficulty of Paying Living Expenses Not on file 12/23/2023 Food Insecurity Answer Date Recorded Worried About Running Out of Food in the Last Ye ar 1 12/23/2023 Transportation Needs Answer Date Record ed Lack of Transportation (Medical) 1 12/23/2023 Housing Stability Answer Date Recorded Unable to Pay for Housing in the Last Year 1 12/23/2023 Sex and Gender Information Value Date Recorded Sex Assigned at Not on file Gender Identity Not on file Sexual Orientation Not on file Obstetrics History Last Filed Vital Signs Vital Sign Reading Time Taken Comments Blood Pressure 152/75 12/23/2023 8:23 AM CDT Pulse 85 12/23/2023 8:23 AM CDT Temperature 36.7 ??C (98.1 ??F) 06/14/2020 10:[address] Respiratory Rate 18 12/13/2013 8:30 AM CDT Oxygen Saturation 96% 12/23/2023 8:23 AM CDT Inhaled Oxygen Concentration - - Weight 88.9 kg (196 lb) 12/23/2023 8:23 AM CDT Height 158.5 cm (5' 2.4) 03/05/2023 2:24 PM CDT Body Mass Index 35.39 03/05/2023 2:24 PM CDT Plan of Treatment Upcoming Encounters Date Type Department Care Team (Late st Contact Info) Description 03/23/2024 7:45 AM CDT Office Visit [facility] [address] [place] [address] Susi Guillermo DO [address] [place] [address] Health Maintenance Due Date Last Done Comments COVID-19 vaccine series ( season) 2023 03/05/2022, 07/18/2020, 06/20/2020 Mammogram for age 45-75 12/18/2023 12/18/19 23, 03/31/2021, 06/02/2018, Additional history exists Tetanus booster 01/09/2024 01/08/2014, 11/08/2001 Influenza for age 50-64 01/26/2024 04/24/20 23, 03/05/2022, 04/07/2021, Additional history exists BMI (ht and wt on same day) for age 18+ 03/05/2024 03/05/2023, 05/14/2022, 04/07/2021, Additional history exists Depression screening for age 12+ 05/03/2024 05/03/2023, 05/17/2022, 05/14/2022, Additional history exists Fecal testing sDNA-FIT ([place] guard) for age 45-75 06/04/2025 06/04/2022 Lipids for age 45-75 12/22/2028 12/23/2023, 04/24/2023, 12/17/2022, Additional history exists Tdap Completed 01/08/2014 Zoster (shingles) series for age 50+ Completed 05/04/2020, 07/27/2019 Hepatitis C screening for ag e 18-79 Completed 07/31/2021 HIV for age 15-65 Completed 05/14/2022 Pneumococcal series for age 6-64 Completed 05/14/20, 06/09/2012 Goals Goal Patient Goal Type Associated Problems Recent Progress Patient-Stated? Author BLOOD PRESSURE - MAINTAINS BP less than 140/90 Blood Pressure No BrittanytSusi DO BLOOD PRESSURE-MAINTA INS BP LESS THAN 130/80 Blood Pressure No DetertSusi DO DIABETES-HgbA1C GOAL LESS THAN 7 Result Component No DetertSusi DO Procedures Procedure Name Priority Date/Time Associated Diagnosis Comments URINE ALBUMIN TO CREATININE RATIO, RANDOM Routine 12/23/2023 8:17 AM CDT Controlled type 2 diabetes mellitus without complication, with long-term current use of insulin (HC) TSH Add On 12/23/2023 8:15 AM CDT Hypothyroidism due to acquired atrophy of thyroid BASIC METABOLIC PANEL Routine 12/23/2023 8:15 AM CDT Hypertension LIPID PANEL W REFLEX MEASURED LDL Routine 12/23/2023 8:15 AM CDT Mixed hyperlipidemia HEMOGLOBIN A1C Routine 12/23/2023 8:15 AM CDT Controlled type 2 diabetes mellitus without complication, with long-term current use of insulin (HC) SCAN-EYE EXAM 12/10/2023 12:00 AM CDT XR MAMMO FLORIN BILAT SCREEN Routine 12/17/2022 7:39 AM CDT Encounter for screening mammogram for malignant neoplasm of breast SDNA-FIT EXTERNAL (COLOGUARD) Routine 06/04/2022 8:40 AM ENERGY EFFICIENCY SPECIALIST Screening for colon cancer ANTI HIV 1/2 Routine 05/14/2022 10:51 AM ENERGY EFFICIENCY SPECIALIST Screening for HIV (human immunodeficiency virus) ANTI HCV Routine 07/31/2021 9:01 AM ENERGY EFFICIENCY SPECIALIST Controlled type 2 diabetes mellitus without complication, with long-term current use of insulin (HC) from Last 3 Months or Most Recently Relevant to Health Maintenance Results * URINE ALBUMIN TO CREATININE RATIO, RANDOM (12/23/2023 8:17 AM CDT) ALB RAND URINE <12.0 mg/L 12/23/2023 4:04 PM CDT [facility] CREATININE,URINE 0.28 g/L 12/23/19 4:04 PM CDT [facility] ALBUMIN TO CREATININE RATIO,RAND UR 12/23/2023 4:04 PM CDT [facility] Comment:Urine Albumin below measurement range, unable to calculate. Urine URINE SPECIMEN / Unknown Non-Blood / Unknown 12/23/2023 8:17 AM CDT 12/23/2023 8:17 AM CDT Narrative [facility] - 12/23/2023 4:04 PM CDT If Albumin to Creatinine Ratio is elevated, consider the following: ? Elevations seen with incipient nephropathy associated ?? with diabetes mellitus or hypertension. Stress, exercise,hematuria, ?? and urinary tract infection may also produce elevated results. If clinically indicated, confirm with ?24 Hour Albumin to Creatinine Ratio. ?? Susi Guillermo DO [facility] [address] [place] [address], * (ABNORMAL) LIPID PANEL W REFLEX MEASURED LDL (12/23/2023 8:15 AM CDT) CHOLESTEROL,TOTAL 271(H) 100 - 199 mg/dL 12/23/2023 2:43 PM CDT [facility] Comment: Cholesterol, Total Reference Ranges Desirable <200 mg/dL Borderline 200-239 mg/dL High >=240 mg/dL TRIGLYCERIDES 386(H) <150 mg/dL 12/23/2023 2:43 PM CDT [facility] HDL CHOLESTEROL 38(L) >40 mg/dL 2:43 PM CDT [facility] NON-HDL CHOLESTEROL 233(H) <145 mg/dl 12/23/2023 2:43 PM CDT [facility] CHOL/HDL RATIO 7.13(H) <4.50 12/23/2023 2:43 PM CDT [facility] LDL CHOLESTEROL 156(H) <=130 mg/dL 12/23/2023 2:43 PM CDT [facility] VLDL CHOLESTEROL 77(H) <=30 mg/dL 12/23/2023 2:43 PM CDT [facility] PROVIDER ORDERED STATUS RANDOM 12/23/2023 2:43 PM CDT [facility] Blood BLOOD SPECIMEN / Unknown Venipuncture / Unknown 12/23/2023 8:15 AM CDT 12/23/2023 8:16 AM CDT Susi Guillermo DO CHEMISTRY [facility] [address] [place] [address], * TSH (12/23/2023 8:15 AM CDT) TSH 1.40 0.27 - 4.20 uIU/mL 12/23/2023 2:43 PM CDT [facility] Blood BLOOD SPECIMEN / Unknown Venipuncture / Unknown 12/23/2023 8:15 AM CDT 12/23/2023 8:16 AM CDT Narrative [facility] - 12/23/2023 2:43 PM CDT In Adults, TSH values between 5.00 and 10.00 uIU/ml do not necessarily indicate the presence of Hypothyroidism. Correlation with clinical findings such as presence of goiter and/or Thyroperoxidase (TPO) Antibody may be helpful. For more information please refer to ALEJANDRO 2004; 291: 228-238. Susi Guillermo DO CHEMISTRY Performing Organization Address [facility]/ZIP Co de Phone Number [facility] [address] [place] [address], [place] * (ABNORMAL) HEMOGLOBIN A1C MONITORING (POCT) (12/23/2023 8:15 AM CDT) HEMOGLOBIN A1C MONITORING (POCT) 9.2(H) <=6.4 % 12/23/2023 8:27 AM CDT [facility] Blood BLOOD SPECIMEN / Unknown Venipuncture / Unknown 12/23/2023 8:15 AM CDT 12/23/2023 8:16 AM CDT Narrative [facility] - 12/23/2023 8:27 AM CDT ? (<=6.9%) ? Indicates good control ? (7.0% to 7.9%) ? Indicates fair control ? (>=8.0%) ? Indicates poor control ?? NOTE: ??These thresholds are guidelines and ?individual targets may vary. Falsely low levels may be seen with: Recent Transfusion, Recent Significant Blood Loss, Hemolytic Diseases, or Falsely elevated levels may be seen with: Untreated Anemias, Splenectomy ? Susi Guillermo DO CHEMISTRY Performing Organization Address [facility]/ZIP Co de Phone Number [facility] [address] [place] [address], [place] [phone] * (ABNORMAL) BASIC METABOLIC PANEL (12/23/2023 8:15 AM CDT) SODIUM 140 136 - 145 mmol/L 12/23/2023 2:43 PM CDT [facility] POTASSIUM 4.8 3.5 - 5.1 mmol/L 12/23/2023 2:43 PM CDT [facility] CHLORIDE 103 98 - 107 mmol/L 12/23/2023 2:43 PM CDT [facility] CO2,TOTAL 24 22 - 29 mmol/L 12/23/2023 2:43 PM CDT [facility] ANION GAP 13 5 - 18 12/23/2023 2:43 PM CDT [facility] GLUCOSE 240(H) 70 - 99 mg/dL 12/23/2023 2:43 PM CDT [facility] CALCIUM 9.4 8.8 - 10.2 mg/dL 12/23/2023 2:43 PM CDT [facility] BUN 13 8 - 23 mg/dL 12/23/2023 2:43 PM CDT [facility] CREATININE 0.82 0.50 - 0.90 mg/dL 12/23/2023 2:43 PM T [facility] BUN/CREAT RATIO 16 10 - 20 2:43 PM CDT [facility] eGFR 80(L) >90 mL/min/1.7 3m2 12/23/2023 2:43 PM T [facility] Comment:As of 2021, eG FR is calculated by the CKD-EPI creatinine equation without race adjustment. ??eGFR can be influenced by muscle mass, exercise, and diet. ??The reported eGFR is an estimation only and is only applicable if the renal function is stable. Blood BLOOD SPECIMEN / Unknown Venipuncture / Unknown 12/23/2023 8:15 AM CDT 12/23/2023 8:16 AM CDT Susi Guillermo DO CHEMISTRY [facility] [address] [place] [address], * SCAN-EYE EXAM (12/10/2023 12:00 AM CDT) Scanner OTHER * XR MAMMO FLORIN BILAT SCREEN (12/17/2022 7:39 AM CDT) Anatomical Region Laterality Modality BREASTS, Breast Left, Breast Right Bilateral Mammography Impressions 12/17/2022 4:55 PM CDT ??There is no radiographic evidence for malignancy. ??Recommend annual mammograms. MAMMOGRAM ASSESSMENT: ??ACR 1 Negative PATIENTS: You will also receive a letter with your examination results in an easy to read format. ??If you have questions about your results, please contact your referring provider. Narrative 12/17/2022 4:55 PM CDT For Patients: As a result of the Cures Act, medical imaging exams and procedure reports are released immediately into your electronic medical record. You may view this report before your referring provider. If you have questions, please contact your health care provider. XR MAMMO FLORIN BILAT SCREEN [[id number]] CLINICAL HISTORY: ??This is an asymptomatic 62 y.o. patient. INDICATION FOR EXAM: Mammogram Screening. TECHNIQUE: CC & MLO views were obtained. ??This study was evaluated with the assistance of Computer-Aided Detection. Breast Tomosynthesis was used in interpretation. COMPARISON FILM: Yes 03/31/21 [facility] 06/02/18 [facility] FINDINGS: ??The breasts are almost entirely fatty. There are no dominant masses, suspicious micro calcifications or areas of architectural distortion. Susi Guillermo DO MAMMO * sDNA-FIT External (Cologuard) [[id number]] (06/04/2022 8:40 AM ENERGY EFFICIENCY SPECIALIST) NONINV COLON CA DNA+OCC BLD SCRN STL-IMP Negative Negative 06/08/2022 2:02 AM ENERGY EFFICIENCY SPECIALIST [facility] (CLIA #:[id number]) Comment: NEGATIVE TEST RESULT. A negative Cologuard result indicates a low likelihood that a colorectal cancer (CRC) or advanced adenoma (adenomatous polyps with more advanced pre-malignant features) ??is present. The chance that a person with a negative Cologuard test has a colorectal cancer is less than 1 in 1500 (negative predictive value >99.9%) or has an ??advanced adenoma is less than ??5.3% (negative predictive value 94.7%). These data are based on a prospective cross-sectional study of 10,000 individuals at average risk for colorectal cancer who were screened with both Cologuard and colonoscopy. (Uzair Butcher et al, N Engl J Med 2014;370(14):1286- 1297) The normal value (reference range) for this assay is negative. COLOGUARD RE-SCREENING RECOMMENDATION: Periodic colorectal cancer screening is an important part of preventive healthcare for asymptomatic individuals at average risk for colorectal cancer. ??Following a negative Cologuard result, the [place] [employer] and U.S. Multi-Society Task Force screening guidelines recommend a Cologuard re-screening interval of 3 years. References: [place] [employer] Guideline for Colorectal Cancer Screening: https://www.cancer.org/cancer/xympm-ulffbp-ozaccr/ctrxcblvs-unprduihd-hrkfctf/ac s-rec ommendations.html.; Tay DK, Tru CR, Gelacio GibbsK, Colorectal Cancer Screening: Recommendations for Physicians and Patients from the U.S. Multi-Society Task Force on Colorectal Cancer Screening , Am J Gastroenterology 2017; 112:3919-4119. TEST DESCRIPTION: Composite algorithmic analysis of stool DNA-biomarkers with hemoglobin immunoassay. ?? Quantitative values of individual biomarkers are not reportable and are not associated with individual biomarker result reference ranges. Cologuard is intended for colorectal cancer screening of adults of either sex, 45 years or older, who are at average-risk for colorectal cancer (CRC). Cologuard has been approved for use by the U.S. FDA. The performance of Cologuard was established in a cross sectional study of average-risk adults aged 50-84. Cologuard performance in patients ages 45 to 49 years was estimated by sub-group analysis of near-age groups. Colonoscopies performed for a positive result may find as the most clinically significant lesion: colorectal cancer [4.0%], advanced adenoma (including sessile serrated polyps greater than or equal to 1cm diameter) [20%] or non- advanced adenoma [31%]; or no colorectal neoplasia [45%]. These estimates are derived from a prospective cross-sectional screening study of 10,000 individuals at average risk for colorectal cancer who were screened with both Cologuard and colonoscopy. (Uzair Sabillon al, N Engl J Med 2014;370(14):4183-6724.) Cologuard may produce a false negative or false positive result (no colorectal cancer or precancerous polyp present at colonoscopy follow up). A negative Cologuard test result does not guarantee the absence of CRC or advanced adenoma (pre-cancer). The current Cologuard screening interval is every 3 years. ([place] [employer] and U.S. Multi-Society Task Force). Cologuard performance data in a 10,000 patient pivotal study using colonoscopy as the reference method can be accessed at the following location: www.One[employer]/results. Additional description of the Cologuard test process, warnings and precautions can be found at www.cologuard.com. Stool specimen (specimen) (Rectum) 06/04/2022 8:40 AM ENERGY EFFICIENCY SPECIALIST 06/05/2022 11:55 AM ENERGY EFFICIENCY SPECIALIST Susi Guillermo DO URINE [facility] (CLIA #:[id number]) [place] [address], * ANTI HIV 1/2 (05/14/2022 10:51 AM ENERGY EFFICIENCY SPECIALIST) HIV-1/HIV-2 ANTIBODY Non-Reacti ve Non-Reacti ve 05/15/2022 1:55 PM ENERGY EFFICIENCY SPECIALIST [facility] Comment:HIV-1 p24 and HIV-1/ HIV-2 Ab not detected. Blood BLOOD SPECIMEN / Unknown Venipuncture / Unknown 05/14/2022 10:51 AM ENERGY EFFICIENCY SPECIALIST 05/14/2022 10:52 AM ENERGY EFFICIENCY SPECIALIST Susi Guillermo DO SEND OUTS Performing Organization Address City/[facility]/ZIP Co de Phone Number [facility] [address] [place] [address], [place] * ANTI HCV (07/31/2021 9:01 AM ENERGY EFFICIENCY SPECIALIST) HEPATITIS C ANTIBODY Non-React silvina Non-React silvina 07/31/2021 6:15 PM ENERGY EFFICIENCY SPECIALIST [facility] Comment:Antibodies to HCV no t detected; does not exclude the possibility of exposure to HCV. Blood BLOOD SPECIMEN / Unknown Venipuncture / Unknown 07/31/2021 9:01 AM ENERGY EFFICIENCY SPECIALIST 07/31/2021 9:01 AM ENERGY EFFICIENCY SPECIALIST Susi Guillermo DO SEND OUTS Performing Organization Address City/[facility]/ZIP Co de Phone Number [facility] [address] [place] [address], [place] from Last 3 Months or Most Recently Relevant to Health Maintenance Advance Directives * Full Code (Latest Code Status on File) Date Activated Date Inactivated Comments 12/11/2013 8:50 PM 12/13/2013 4:44 PM Care Teams Amusement Or Recreation Card Checker Relationship Specialty Start Date End Date Susi [place] [address] PCP - General Family Practice 06/16/14 León Mooney MD [address] [place] [id number] Endocrinology 01/01/22
[2024-01-22 18:14] LABS: Slide Review Reflex No
[2024-01-22 18:18] LABS: Albumin* 4.6 g/dL (3.3-5.0); Chloride* 105 mmol/L (96-114)
[2024-01-22 18:19] LABS: Potassium* 4.2 mmol/L (3.6-5.1); Sodium* 138 mmol/L (135-149)
[2024-01-22 18:21] LABS: Alkaline Phosphatase* 81 U/L (40-150); Anion Gap 7 mEq/L (7-15); Aspartate Amino Transferase* 27 U/L (12-35); Bilirubin Total* 0.2 mg/dL (0.1-1.5); Carbon Dioxide* 26 mmol/L (20-32); Creatine Kinase* 106 U/L (41-117); Creatinine* 0.8 mg/dL (0.5-1.5); Est. Creatinine Clearance* 45.54; Estimated Glomerular Filt Rate 83 ml/min; Total Protein* 7.6 g/dL (6.0-8.3)
[2024-01-22 18:22] LABS: Alanine Aminotransferase* 18 U/L (4-35); Blood Urea Nitrogen* 15 mg/dL (7-30); Calcium* 9.5 mg/dL (8.4-10.6); Glucose* 116 mg/dL (60-115)
[2024-01-22 18:24] LABS: C Reactive Protein* 1.1 mg/dL (0.5-1.0)
[2024-01-22 18:37] LABS: NT Pro B Type NatriureticPept* < 20 pg/mL; Troponin I* < 0.01 ng/mL (0.01-0.04)
[2024-01-22 19:10] LABS: D Dimer Quantitative* < 0.27 ug/ml (0.00-0.50)
--- NOTE | 2024-01-22 21:33 | P.IMHP_ITS ---
Hospitalist- H&P: HPI History of Present Illness Date Seen: 01/22/24 Chief complaint: loss of consciousness Narrative: ADMISSION HISTORY AND PHYSICAL - HOSPITALIST Chief Complaint: legs went weak; I went down HPI: What follows is the ED HPI. I verified the same story with Elva. She states this started at 3:15pm and she was able to get up and go the car and walk into the ED for evaluation. Of note, she has a long hx of various drug reactions/side effects/allergies (22 listed in Epic). This 63-year-old female is coming in accompanied by her with concern of an episode that happened earlier where her legs gave out, she fell, possible loss of consciousness, incoherent speech for about 10 minutes after. She states it was really bizarre, almost like an out of body experience. Her felt her pulse felt fast but regular, her breathing seemed altered for a while and her speech was garbled, maybe up to 10 minutes. She did fall, she knew her legs were giving out. They just felt weak and gave out. She has been experiencing leg weakness for about a week now, feels it with getting up out of a chair, going up steps. She has never had anything to this extent before. She has been on rosuvastatin for about a week as the pharmacy was out of the praIoxus. W hen she is taken rosuvastatin the past she noted leg weakness, could not tolerate it. She never had anything like this before though. She actually did fall to the ground, it is questionable if she lost consciousness or not. Her notes that her speech was clearly altered and not clear. There is no noted pain anywhere, she has not been having any muscular pain. There is no back pain, no pain going down her legs. Her right hand along the palm at the base of the 3rd 4th and 5th fingers has been numb this past week. She has had that with prior cervical issues for which she did physical therapy. She is not experiencing any neck pain at this time, numbness sensation is not worse at this time. She notes that she had a recent follow up in clinic with Dr. Guillermo and her diabetes was out of control. She has been walking again, doing about 2 miles a day. There is no chest pain, no palpitations, no abdominal symptoms with this. Her worries about a small stroke or TIA, do review with him that that is certainly in the differential. We discussed such entities as cervical myelopathy, other etiologies in the syncope category. She notes that she did have negative cardiac stress testing before but that was in [place], unknown how long ago. She has no known cardiac or heart history. When this happened, patient was able to call out her 's name once. She feels like she remembers the whole episode but could not say anything, could not control her body. She states it feels like it was an out of body episode. ER COURSE: Imaging; labs, neuro consult. Neuro recommended overnight observation with MR and f/u bedside tele-neuro visit in the am. CODE STATUS: FULL CODE EMERGENCY CONTACT PLAN: Avni Jeronimo Rel To Pat Cell I've updated the PFSH, medications and allergies in the Expanse tabs. INVESTIGATIONS: LABS/MICRO/ECG/IMAGING CBC reflects a mild anemia at 10.7. MCV is low at 75. Normal platelets. Normal white blood cell count. Undetectable D-dimer Electrolytes and renal function are all normal. Lactate is normal. LFTs are normal. Troponin is undetected CRP is 1.1 Glucose is 116 All the imaging from admission which includes a cervical spine CT, neck CTA, head CT and chest x-ray are all reviewed. 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 Otherwise, no proximal large vessel occlusion or cervical arterial stenosis. REVIEW OF SYSTEMS: 12-point ROS completed with patient and negative unless otherwise stated in HPI or below. PHYSICAL EXAM: CONSTITUTIONAL: Conversive, good historian. A/O. Knows setting and context. NAD. VITAL SIGNS: see record. HEENT: Normocephalic, atraumatic. PERRL, EOMI, conjunctivae pink, no scleral icterus. Ears and nose externally normal. Pharynx normal. NECK: No JVD. No carotid bruit, no thyromegaly, no adenopathy. CHEST: Clear to auscultation bilaterally HEART: S1 and S2 normal. No harsh murmurs, 2/6 NIXON. Edema minimal. MUSCULOSKELETAL: No gross joint deformity or swelling. NEURO: Cranial nerves intact. Grossly intact. No asymmetric findings. Did not observe gait or do orthostatic bp check. SKIN: No rashes, petechiae, concerning changes PSYCHIATRIC: Euthymic. ADMIT TO MEDSURG: FLOOR CARE DVT: SCDs, ambulation GI: PO intake Time spent: Today I spent 75 minutes seeing the patient, discussing the patient with ER staff, reviewing Expanse and EPIC notes/diagnostics, discussing the care plan with our care time that includes social work, PT/OT, pharmacy, RT, senior care and documenting my impressions and plan in the medical record. [facility] Medical History (Updated 01/22/24 @ 22:18 by Barbara uMltani MD) Multiple drug allergies ?Z88.9 - Allergy status to unspecified drugs, medicaments and biological substances (ICD-10) Obesity ?E66.9 - Obesity, unspecified (ICD-10) GERD (gastroesophageal reflux disease) ?K21.9 - Gastro-esophageal reflux disease without esophagitis (ICD-10) Hypothyroidism ?E03.9 - Hypothyroidism, unspecified (ICD-10) Hyperlipidemia, mixed ?E78.2 - Mixed hyperlipidemia (ICD-10) Type 2 diabetes mellitus ?E11.9 - Type 2 diabetes mellitus without complications (ICD-10) HTN (hypertension) ?I10 - Essential (primary) hypertension (ICD-10) Surgical History (Updated 01/22/24 @ 21:33 by Barbara Multani MD) H/O breast biopsy ?Z98.890 - Other specified postprocedural states (ICD-10) H/O hernia repair ?Z98.890 - Other specified postprocedural states (ICD-10) ?Z87.19 - Personal history of other diseases of the digestive system (ICD-10) History of hysterectomy ?Z90.710 - Acquired absence of both cervix and uterus (ICD-10) History of laparoscopic cholecystectomy ?Z90.49 - Acquired absence of other specified parts of digestive tract (ICD- 10) Status post appendectomy ?Z90.49 - Acquired absence of other specified parts of digestive tract (ICD- 10) Social History Smoking Status: Never smoker Do you use any of these nicotine containing products: None Second hand tobacco smoke exposure: No How often do you have a drink containing alcohol: never How often do you have six or more drinks on one occasion: Never AUDIT-C Alcohol total score: 0 Non-prescribed substance use: denies use service: No Meds Home Medications and Allergies Home Medications ?Medication ?Instructions ?Recorded ?Confirmed ?Type diltiazem HCl 120 mg 120 mg PO DAILY 06/17/23 01/22/24 History capsule,extended release 24 hr empagliflozin 25 mg tablet 25 mg PO DAILY 06/17/23 01/22/24 History (Jardiance) esomeprazole magnesium 40 mg 40 mg PO DAILY 06/17/23 01/22/24 History capsule,delayed release esomeprazole sodium 20 mg 20 mg IV Q24H 06/17/23 06/17/23 History intravenous solution insulin degludec 100 unit/mL (3 See Rx Instructions subcut .COMPLEX 06/17/23 01/22/24 History mL) subcutaneous pen (Tresiba FlexTouch U-100 insulin) levothyroxine 75 mcg tablet 75 mcg PO DAILY 06/17/23 01/22/24 History pen needle, diabetic 31 gauge x #1,200 ea 06/17/23 06/17/23 History 3/16 (BD Ultra-Fine Mini Pen Needle) valsartan 160 mg tablet 160 mg PO QDAY 06/17/23 01/22/24 History venlafaxine 75 mg capsule,extended 75 mg PO DAILY 06/17/23 06/17/23 History release 24 hr rosuvastatin 5 mg tablet 5 mg PO DAILY 01/22/24 01/22/24 History tirzepatide 5 mg/0.5 mL 5 mg subcut .weekly 01/22/24 01/22/24 History subcutaneous pen injector (Mounjaro) Allergies Allergy/AdvReac Type Severity Reaction Status Date / Time Penicillins Allergy Severe Anaphylaxis Verified 01/22/24 18:43 Sulfa (Sulfonamide Allergy Intermediate Hives/Rash Verified 01/22/24 18:43 Antibiotics) EDDI Inhibitors Allergy Unknown Verified 01/22/24 18:43 Cephalosporins Allergy Unknown Verified 01/22/24 18:43 erythromycin base Allergy Unknown Verified 01/22/24 18:43 [From Erythrocin] metformin Allergy Unknown Verified 01/22/24 18:43 morphine Allergy Unknown Verified 01/22/24 18:43 nitrofurantoin Allergy Unknown Verified 01/22/24 18:43 [From Macrobid] [id number]-[id number] Reductase Allergy Unknown Verified 01/22/24 18:43 Inhibitor Exam Const: Vital Signs, click to edit/add: Vital Signs - 24 hr 01/22/24 16:23 01/22/24 17:33 Temperature 98 F Pulse Rate [Left P ulse Oximeter] 98 Respiratory Rate 18 Blood Pressure [Le ft Upper Arm] 172/85 H Pulse Oximetry 96 97 Oxygen Delivery Me thod Room Air Hospitalist - H&P: Result Labs Labs: Short CBC 01/22/24 Range/Units 17:53 WBC 10.28 (4.50-11.00) K/uL Hgb 10.7 L (12.0-16.0) gm/dL Hct 35.8 (33.0-51.0) % Plt Count 325 (140-440) K/uL BMP 01/22/24 17:53 Sodium 138 Potassium 4.2 Chloride 105 Carbon Dioxide 26 BUN 15 Creatinine 0.8 Glucose 116 H Calcium 9.5 Cardiac Enzymes 01/22/24 Range/Units 17:53 Total Creatine Kinase 106 (41-117) U/L Troponin I < 0.01 L (0.01-0.04) ng/mL Liver Function 01/22/24 Range/Units 17:53 Total Bilirubin 0.2 (0.1-1.5) mg/dL AST 27 (12-35) U/L ALT 18 (4-35) U/L Alkaline Phosphatase 81 (40-150) U/L Albumin 4.6 (3.3-5.0) g/dL Assessment and Plan Assessment and plan (1) Spell of altered consciousness: Problem comment: -no true LOC reported by patient; vague description of being out of it -CVA? seizure? vasovagal episode? multifactorial weakness episode (DM, med side effect, pain) -telemetry, MRI/MRA, neuro consult -echo Status: Acute (2) Spell of generalized weakness: Problem comment: -absent seizure? May need EEG and outpatient neuro workup -vasovagal from acute on chronic pain -cardiac arrhythmia? Status: Acute (3) HTN (hypertension): Problem comment: -Diovan in the am, diltiazem in the pm -allow for hypertension tonight given acute neuro event Status: Acute (4) Type 2 diabetes mellitus: Problem comment: 9.2 A1C - November 2023 insulin dependent -Tresiba daily Monjara weekly jardiance SSI, bedside glucose monitoring Status: Acute (5) Hyperlipidemia, mixed: Problem comment: statin intolerance rush prohibitive rapatha has been recommended by cardiology fish oils coenzyme q10 has been on crestor (despite previous intolerance) Status: Acute (6) Hypothyroidism: Problem comment: -at goal Status: Acute (7) GERD (gastroesophageal reflux disease): Problem comment: -continue PPI Status: Acute (8) Multiple drug allergies: Problem comment: 22 listed allergies in Epic Status: Acute (9) Obesity: Status: Acute
[2024-01-22] MEDS: dilTIAZem 120 MG CAP.ER.24H PO (22:52)
[2024-01-22 23:00] VITALS: PULSE 78
[2024-01-22 23:41] VITALS: BP 152/83; PULSE 81; RESP 18; TEMP 36.7; O2SAT 96; BMI 35.0
[2024-01-22 23:47] VITALS: RESP 18; O2SAT 96
[2024-01-23] VITALS (8 sets, daily range): BP systolic 131–153; BP diastolic 72–88; PULSE 63–82; RESP 16–20; TEMP 36.7–36.9; O2SAT 95–99
[2024-01-23] MEDS: ACETAMINOPHEN 325 MG TABLET PO (00:46)
[2024-01-23] MEDS: LEVOTHYROXINE 75 MCG TABLET PO (06:26)
--- NOTE | 2024-01-23 06:37 | PC.NURSE ---
Arrived to the floor at 2130 via wheelchair. A&O pleasant and cooperative. VSS. Denies pain. Neuros unremarkable. Up w/ SBA. Denies any lightheaded/dizziness. Using call light appropriately. . ?
--- NOTE | 2024-01-23 07:00 | CRLHL7_ITS ---
For Patients: As a result of the Century Cures Act, medical imaging exams and procedure reports are released immediately into your electronic medical record. You may view this report before your referring provider. If you have questions, please contact your health care provider. Indication: Confusion. Technique: Multiplanar, multisequence MRI of the brain was performed without and with intravenous contrast. Contrast: 20 cc Dotarem. Comparison: CT head 01/22/2024. Findings: The corpus callosum in clivus appear intact. Nonspecific empty expanded sella morphology. Mild degenerative change visualized upper cervical spine. There is a 9 mm focus of restricted diffusion within the left inferior basal ganglia. Corresponding T2 FLAIR hyperintensity. Possible small infarct within the left caudate head. The ventricles are proportionate to the cerebral sulci. The 4th ventricle appears midline. The basal cisterns appear patent. No abnormal extra-axial fluid collection identified. Mild parenchymal volume loss. Ydqg-bs-[id number] scattered T2 FLAIR hyperintense foci within the subcortical and periventricular white matter, favored to represent chronic ischemic microvascular disease. Small chronic infarct right cerebellum. There is no intracranial mass, abnormal mass-effect or midline shift identified. No abnormal enhancement. Trapped fluid within the right petrous apex. Both globes are preserved. Impression: 1. Small acute/subacute left inferior basal ganglia infarct. Possible small infarct within the left caudate head. 2. Aefu-ix-hqyokjhr scattered chronic ischemic microvascular disease. 3. Nonspecific expanded empty sella morphology. Dictated by Anthony German MD @ 01/23/2024 1:07:56 PM (Electronically Signed)
[2024-01-23] MEDS: COENZYME Q10 100 MG CAPSULE 200 MG PO (09:05)
[2024-01-23] MEDS: OMEPRAZOLE 20 MG CAPSULE DR 40 MG PO (09:05)
[2024-01-23] MEDS: EMPAGLIFLOZIN 10 MG TABLET 25 MG PO (09:06)
[2024-01-23] MEDS: SODIUM CHLORIDE 0.9 % (FLUSH) 10 ML SYRINGE 5 ML IVF (09:07)
[2024-01-23] MEDS: VENLAFAXINE ER 75 MG CAPSULE PO (09:12)
[2024-01-23] MEDS: VALSARTAN 80 MG TABLET 320 MG PO (09:19)
--- NOTE | 2024-01-23 15:17 | P.DS_ITS ---
DS: Providers Provider Date Seen: 01/23/24 Date of admission: 01/22/24 21:25 Primary care physician: Susi Guillermo DO Admitting Clinician: Barbara Multani MD Consults: Neurology Attending Physician on discharge: Barbara Multani MD Date of Discharge: 01/23/24 DS: Diagnosis Discharge Diagnosis (1) CVA (cerebrovascular accident): Status: Acute Problem details: Patient presented after a strange spell of freezing/weakness. She was unable to move and developed about 10min of garbled speech. She was aware that her speech was nonsensical and just could not control her communication. She also developed some right hand numbness. Due to her elevated risk for CVA with HTN, HLD and DMII, she underwent workup with CTA which showed possible occlusion of the right vertebral artery. She then remained in hospital overnight on telemetry and had MRI brain on 01/23/24 which showed an acute infarction of the left basal ganglia. Neurology was consulted. Recommended echo (ok to be done outpatient) and baby aspirin daily. She has not been able to get pravastatin from her pharmacy recently, so will resume it with a prescription to be sent to another pharmacy. (2) HTN (hypertension): Status: Acute Problem details: -Diovan in the am, diltiazem in the pm -Allowed for permissive hypertension in hospital. OK to resume therapy on discharge (3) Type 2 diabetes mellitus: Status: Acute Problem details: 9.2 A1C - November 2023 insulin dependent -Tresiba daily Monjara weekly jardiance Will need ongoing follow up with PCP (4) Hyperlipidemia, mixed: Status: Acute Problem details: statin intolerance, but is able to tolerate pravastatin (hasn't had access through her pharmacy recently) rush prohibitive rapatha has been recommended by cardiology fish oils coenzyme q10 has been on crestor (despite previous intolerance) Will send pravastatin to another pharmacy for fill. (5) Hypothyroidism: Status: Acute Problem details: -at goal (6) GERD (gastroesophageal reflux disease): Status: Acute Problem details: -continue PPI (7) Obesity: Status: Acute (8) Multiple drug allergies: Status: Acute Problem details: 22 listed allergies in Epic DS: Summary Hospital Course Hospital Course: Patient presented after a strange spell of inability to move/weakness. She was unable to move and developed about 10min of garbled speech. She was aware that her speech was nonsensical and just could not control her communication. She al so developed some right hand numbness. Due to her elevated risk for CVA with HTN, HLD and DMII, she underwent workup with CTA which showed possible occlusion of the right vertebral artery. She then remained in hospital overnight on telemetry and had MRI brain on 01/23/24 which showed an acute infarction of the left basal ganglia. Neurology was consulted. Recommended echo (ok to be done outpatient) and baby aspirin daily. They recommended that she resume her previously tolerated pravastatin. We were unable to obtain an echo in the hospital and will need one as an outpatient for completeness. I would also recommend ambulatory cardiac monitoring to investigate occult arrhythmia Status at Discharge Functional status at discharge: independent ambulation Time Spent with Patient Time attestation: Total time spent providing and/or coordinating discharge services: Time spent: Greater than 30 minutes Exam Narrative: Exam Narrative: General: Well appearing, no distress HEENT: NCAT Resp: Breathing is comfortable/unlabored CV: RRR, subtle systolic murmur LUSB Neuro: Awake, alert and oriented x4, subjective R hand numbness otherwise no clear lateralizing deficits Const: Vital Signs, click to edit/add: Vital Signs - 24 hr 01/22/24 16:23 01/22/24 17:33 01/22/24 23:00 Temperature 98 F Pulse Rate 78 Pulse Rate [Left P ulse Oximeter] 98 Pulse Rate [Pulse Oximeter] Pulse Rate [orthos tatic lying] Pulse Rate [orthos tatic sitting] Pulse Rate [orthos tatic standing] Respiratory Rate 18 Blood Pressure [Le ft Arm] Blood Pressure [Le ft Upper Arm] 172/85 H Blood Pressure [Ri ght Arm] Blood Pressure [or thostatic lying] Blood Pressure [or thostatic sitting] Blood Pressure [or thostatic standing ] Pulse Oximetry 96 97 Oxygen Delivery Me thod Room Air 01/22/24 23:41 01/22/24 23:47 01/22/24 23:47 Temperature 98.1 F Pulse Rate Pulse Rate [Left P ulse Oximeter] Pulse Rate [Pulse Oximeter] 81 Pulse Rate [orthos tatic lying] Pulse Rate [orthos tatic sitting] Pulse Rate [orthos tatic standing] Respiratory Rate 18 18 Blood Pressure [Le ft Arm] 152/83 H Blood Pressure [Le ft Upper Arm] Blood Pressure [Ri ght Arm] Blood Pressure [or thostatic lying] Blood Pressure [or thostatic sitting] Blood Pressure [or thostatic standing ] Pulse Oximetry [address] [facility] Room Air 01/23/24 03:59 01/23/24 04:10 01/23/24 04:20 Temperature 98.1 F Pulse Rate Pulse Rate [Left P ulse Oximeter] Pulse Rate [Pulse Oximeter] 63 63 Pulse Rate [orthos tatic lying] 63 Pulse Rate [orthos tatic sitting] 75 Pulse Rate [orthos tatic standing] 82 Respiratory Rate 16 Blood Pressure [Le ft Arm] 146/72 H Blood Pressure [Le ft Upper Arm] Blood Pressure [Ri ght Arm] Blood Pressure [or thostatic lying] 146/72 H Blood Pressure [or thostatic sitting] 148/76 H Blood Pressure [or thostatic standing ] 131/76 Pulse Oximetry [address] [facility] 01/23/24 07:00 01/23/24 07:00 01/23/24 07:00 Temperature Pulse Rate 73 Pulse Rate [Left P ulse Oximeter] Pulse Rate [Pulse Oximeter] 79 79 Pulse Rate [orthos tatic lying] Pulse Rate [orthos tatic sitting] Pulse Rate [orthos tatic standing] Respiratory Rate 20 20 Blood Pressure [Le ft Arm] Blood Pressure [Le ft Upper Arm] Blood Pressure [Ri ght Arm] 140/75 H Blood Pressure [or thostatic lying] Blood Pressure [or thostatic sitting] Blood Pressure [or thostatic standing ] Pulse Oximetry [address] [facility] 01/23/24 08:00 01/23/24 11:00 01/23/24 12:00 Temperature 98.4 F Pulse Rate Pulse Rate [Left P ulse Oximeter] Pulse Rate [Pulse Oximeter] 79 82 82 Pulse Rate [orthos tatic lying] Pulse Rate [orthos tatic sitting] Pulse Rate [orthos tatic standing] Respiratory Rate 20 Blood Pressure [Le ft Arm] Blood Pressure [Le ft Upper Arm] Blood Pressure [Ri ght Arm] 153/88 H Blood Pressure [or thostatic lying] Blood Pressure [or thostatic sitting] Blood Pressure [or thostatic standing ] Pulse Oximetry 95 Oxygen Delivery [facility] Room Air DS: Data Data Completed and Pending Labs on day of discharge: Labs from last 24 hours 01/22/24 17:53 WBC 10.28 RBC 4.80 Hgb 10.7 L Hct 35.8 MCV 75 L MCH 22 L MCHC 30 L RDW Coeff of Fanny 15.9 H Plt Count 325 Neut % (Auto) 58.7 Lymph % (Auto) 31.5 Rich % (Auto) 6.8 Eos % (Auto) 2.6 Baso % (Auto) 0.3 Neut # (Auto) 6.03 Lymph # (Auto) 3.24 H Rich # (Auto) 0.70 Eos # (Auto) 0.27 Baso # (Auto) 0.03 Abs Immat Gran (auto) 0.01 Imm/Tot Granulo (auto) 0.1 D-Dimer Quant (PE/DVT) < 0.27 Sodium 138 Potassium 4.2 Chloride 105 Carbon Dioxide 26 Anion Gap 7 BUN 15 Creatinine 0.8 Estimated Creat Clear 45.54 Estimated GFR 83 Glucose 116 H Lactate 1.1 Calcium 9.5 Total Bilirubin 0.2 AST 27 ALT 18 Alkaline Phosphatase 81 Total Creatine Kinase 106 Troponin I < 0.01 L C-Reactive Protein 1.1 H NT-Pro-B Natriuret Pep < 20 Total Protein 7.6 Albumin 4.6 Discharge Plan Discharge Disposition: Home, Self-Care Date of Admission: 01/22/24 21:25 Attending Provider on Discharge: Noelle Elmore Consulting Providers: Rico Ashley Primary Care Provider: Susi Guillermo Condition: Improved Anticipated Discharge Date/Time: 01/23/24 15:03 Discharge Medications: New pravastatin 40 mg tablet 40 mg PO QHS Qty: 30 2RF aspirin 81 mg capsule 81 mg PO DAILY Qty: 30 2RF Continued valsartan 160 mg tablet 320 mg PO DAILY insulin degludec [Tresiba FlexTouch U-100] 100 unit/mL (3 mL) insulin pen 57 unit subcut Q24H levothyroxine 75 mcg tablet 75 mcg PO DAILY esomeprazole magnesium 40 mg capsule,delayed release(DR/EC) 40 mg PO DAILY venlafaxine 75 mg capsule,extended release 24hr 75 mg PO DAILY Jardiance 25 mg tablet 25 mg PO DAILY diltiazem HCl 120 mg capsule,extended release 24hr 120 mg PO DAILY (DME) pen needle, diabetic [BD Ultra-Fine Mini Pen Needle] 31 gauge x 3/16 needle See Rx Instructions .ROUTE 3XD Qty: 1200 Rx Instructions: As directed Mounjaro 5 mg/0.5 mL pen injector 5 mg subcut .weekly biotin 2,500 mcg tablet 5,000 mcg PO DAILY Rx Instructions: Pt takes one 5,000 mcg tablet once daily cholecalciferol (vitamin D3) 50 mcg (2,000 unit) capsule 2,000 unit PO DAILY Rx Instructions: Take 2,000 Units by mouth once daily. coenzyme Q10 100 mg capsule 200 mg PO DAILY Rx Instructions: Take 2 capsules by mouth once daily. estradiol 0.01 % (0.1 mg/gram) cream 1 g VAGINAL 3XW Rx Instructions: Insert 1 g into the vagina every Saturday, Saturday and Saturday. Discontinued esomeprazole sodium 20 mg recon soln 20 mg IV Q24H Rx Instructions: administer over at least 3 mins if given IV push rosuvastatin 5 mg tablet 5 mg PO HS Discharge Orders: Discharge Order (Routine); Ordered 01/23/24 Ordered By: Noelle Elmore Patient Education: Ischemic Stroke (GEN) Activity Level: No Restrictions Discharge Diet: Heart Healthy (2 gm sodium, low fat) Follow Up Appointments: Susi Guillermo DO [Primary Care Provider] - (Hospital follow up, recommend Zio patch and outpatient echocardiogram (unable to obtain in hospital)) Forms: [facility] Info Instructions
--- NOTE | 2024-01-23 22:25 | CRLHL7_ITS ---
For Patients: As a result of the Century Cures Act, medical imaging exams and procedure reports are released immediately into your electronic medical record. You may view this report before your referring provider. If you have questions, please contact your health care provider. Indication: Confusion. Technique: 3D [id number] image acquisitions performed before and after IV gadolinium. MIP reconstructions with rotational presentation. Contrast: 20 cc Dotarem. Comparison: CTA neck 01/22/2024. Findings: Mild (less than 50 % stenosis) atherosclerotic disease of the internal carotid arteries by NASCET criteria. Left vertebral artery dominance. 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 Impression: 1. Mild (less than 50 % stenosis) atherosclerotic disease of the internal carotid arteries by NASCET criteria. 2. The right vertebral artery is hypoplastic and is occluded at its distal V3/V4 segment. Dictated by Anthony German MD @ 01/23/2024 1:18:12 PM (Electronically Signed)
== END 2024-01-23 17:19 | disposition home or self-care (01) ==
LOC: ED 20:41 → MEDSURG 21:27
PROVIDERS: Admitting Provider Family Medicine; Emergency Provider Family Medicine; PCP Family Medicine; Visit Provider Family Medicine
DX: I63.9 Cerebral infarction, unspecified (principal); R40.4 Transient alteration of awareness; R53.1 Weakness; R20.0 Anesthesia of skin; R47.89 Other speech disturbances; I10 Essential (primary) hypertension; E11.9 Type 2 diabetes mellitus without complications; E78.2 Mixed hyperlipidemia; W19.XXXA Unspecified fall, initial encounter; E03.9 Hypothyroidism, unspecified; K21.9 Gastro-esophageal reflux disease without esophagitis; E66.9 Obesity, unspecified; Z68.34 Body mass index [BMI] 34.0-34.9, adult; Z88.9 Allergy status to unspecified drugs, medicaments and biological substances; Z79.4 Long term (current) use of insulin; Z98.890 Other specified postprocedural states; Z87.19 Personal history of other diseases of the digestive system; Z90.710 Acquired absence of both cervix and uterus; Z90.49 Acquired absence of other specified parts of digestive tract
CPT/HCPCS: 36415; 70450; 70496; 70498; 70549; 70553; 71045; 72125; 80053; 82550; 82962; 83605; 83880; 84484; 85025; 85379; 86140; 93005; 94761; 99285; G0378; A9270; A9575; Q9967